=== PATIENT | male | born 2000 | race Caucasian/White ===

== ENCOUNTER 2020-09-02 17:36 | Emergency (ER) | payer MEDICAID ==
[~2020-09-02] VITALS: Ht 177.8 cm; Wt 85.0 kg
[~2020-09-02 17:36] MED LIST: ALBU6.7H9 INH; NO HOME MEDS; No home meds
[2020-09-02 18:28] LABS: BASOPHILS # (AUTO) 0.1 X10'3 (0-0.2); BASOPHILS % (AUTO) 0.7 % (0-1); EOSINOPHILS # (AUTO) 0.1 X10'3 (0-0.9); EOSINOPHILS % (AUTO) 0.7 % (0-6); HEMATOCRIT 46.7 % (42.0-52.0); HEMOGLOBIN 15.9 g/dl (14.0-17.9); LYMPHOCYTES # (AUTO) 1.6 X10'3 (1.1-4.8); LYMPHOCYTES % (AUTO) 20.9 % (21-51); MEAN CORPUSCULAR HEMOGLOBIN 31.3 PG (27.0-31.0); MEAN CORPUSCULAR VOLUME 92.1 FL (78-98); MEAN PLATELET VOLUME 7.4 FL (7.4-10.4); MONOCYTES # (AUTO) 0.5 X10'3 (0-0.9); MONOCYTES % (AUTO) 7.2 % (2-12); NEUTROPHILS # (AUTO) 5.3 X10'3 (1.8-7.7); NEUTROPHILS % (AUTO) 70.5 % (42-75); PLATELET COUNT 275 X10'3 (140-440); RED BLOOD COUNT 5.07 X10'6 (4.70-6.10); RED CELL DISTRIBUTION WIDTH 12.9 % (11.5-14.5); WHITE BLOOD COUNT 7.5 X10'3 (4.5-11.0)
[2020-09-02 18:33] LABS: CLARITY,URINE SLIGHTLY CLOUDY (Clear); COLOR,URINE YELLOW (Yellow); GLUCOSE, URINE NEGATIVE (Neg); KETONES,URINE TRACE mg/dl (Neg); LEUKOCYTE ESTERASE ,URINE NEGATIVE (Neg); NITRITES, URINE NEGATIVE (Neg); OCCULT BLOOD,URINE NEGATIVE (Neg); PROTEIN,URINE NEGATIVE (Neg)
[2020-09-02 18:39] LABS: UA COLLECTION TYPE CLN CATCH MIDSTREAM
[2020-09-02 18:39] LABS: ALANINE AMINOTRANSFERASE 36 U/L (12-78); ALBUMIN 4.2 G/DL (3.4-5.0); ALBUMIN/GLOBULIN RATIO 1.1 (1.1-1.5); ALKALINE PHOSPHATASE 74 IU/L (20-180); ANION GAP 7 (8-16); ASPARTATE AMINO TRANSFERASE 12 U/L (10-37); BILIRUBIN,TOTAL 0.5 MG/DL (0.1-1.0); BLOOD UREA NITROGEN 9 MG/DL (7-18); CALCIUM 8.7 MG/DL (8.5-10.1); CHLORIDE 105 MMOL/L (99-107); CREATININE 1.13 MG/DL (0.60-1.10); GLUCOSE 89 MG/DL (70-104); POTASSIUM 3.8 MMOL/L (3.5-5.1); SODIUM 143 MMOL/L (135-145); TOTAL CARBON DIOXIDE 30.7 MMOL/L (24-32); TOTAL PROTEIN 7.9 G/DL (6.4-8.2); eGFR 84 ML/MIN
[2020-09-02 18:41] LABS: BACTERIA,URINE FEW /HPF (Neg); RBC,URINE NONE SEEN /HPF (0-2); SQUAMOUS EPITHELIAL CELL,UR FEW /LPF (FEW); WBC,URINE 0-4 /HPF (0-4)
[2020-09-02 18:44] LABS: URINE AMPHETAMINE SCREEN NEGATIVE (Neg); URINE BARBITUATE SCREEN NEGATIVE (Neg); URINE BENZODIAZEPINES SCREEN NEGATIVE (Neg); URINE CANNABINOID SCREEN POSITIVE (Neg); URINE COCAINE SCREEN NEGATIVE (Neg); URINE METHADONE SCREEN NEGATIVE (Neg); URINE OPIATE SCREEN NEGATIVE (Neg); URINE PHENCYCLIDINE SCREEN NEGATIVE (Neg)
[2020-09-02 18:47] LABS: ACETAMINOPHEN 6.9 UG/ML (10-30)
[2020-09-02 18:50] LABS: ETHANOL < 0.010 GM/DL (0.0-0.010)
--- NOTE | 2020-09-02 19:14 | NUR ---
Pt resting in bed, given meal tray and warm blankets.
--- NOTE | 2020-09-02 19:58 | NUR ---
PACKET FAXED TO [facility]
--- NOTE | 2020-09-02 20:54 | NUR ---
pt mother called, Meagahn Baker [phone].
--- NOTE | 2020-09-02 21:38 | NUR ---
Pt resting, states he does not take any home medications.
--- NOTE | 2020-09-03 01:37 | NUR ---
Pt sleeping, RR 16
[2020-09-03 05:00] VITALS: BP 116/63
--- NOTE | 2020-09-03 07:00 | NUR ---
PT IS RESTING
--- NOTE | 2020-09-03 08:00 | NUR ---
PT IS AWAKE AND IS TAKING WITH [facility]
--- NOTE | 2020-09-03 09:00 | NUR ---
PT IS EATING BREAKFAST
--- NOTE | 2020-09-03 10:00 | NUR ---
PT IS RESTING
--- NOTE | 2020-09-03 11:00 | NUR ---
[facility] CALLED FOR REPORT
--- NOTE | 2020-09-03 12:00 | NUR ---
PT IS SLEEPING
--- NOTE | 2020-09-03 13:00 | NUR ---
COVID SENT COLLECTED
[2020-09-03] MEDS ORDERED: carbamide peroxide 15ml bottle RIGHT EAR SCH (13:10)
--- NOTE | 2020-09-03 14:38 | NUR ---
up to bathroom
--- NOTE | 2020-09-03 14:55 | NUR ---
up to bathroom
== END 2020-09-03 16:38 ==
LOC: ER 17:37
DX: R45.851 Suicidal ideations (principal); Z20.828 Contact with and (suspected) exposure to other viral communicable diseases; J45.909 Unspecified asthma, uncomplicated; F12.90 Cannabis use, unspecified, uncomplicated; Z72.89 Other problems related to lifestyle; Z79.899 Other long term (current) drug therapy
CPT/HCPCS: 36415; 80053; 80305; 80320; 80329; 81001; 84443; 85025; 87635; 99285; C9803

== ENCOUNTER 2020-09-24 11:28 | Emergency (ER) | payer MEDICAID ==
[~2020-09-24] VITALS: Ht 177.8 cm; Wt 86.4 kg
[~2020-09-24 11:28] MED LIST changes: -ALBU6.7H9 INH
[2020-09-24] MEDS ORDERED: famotidine 20mg tablet PO ONE (12:15)
[2020-09-24] MEDS ORDERED: LORazepam 1 MG tablet PO ONE (12:25)
== END 2020-09-24 12:40 | disposition home or self-care (01) ==
LOC: ER 11:28
DX: R07.89 Other chest pain (principal); R10.13 Epigastric pain; R11.10 Vomiting, unspecified; J45.909 Unspecified asthma, uncomplicated; F12.90 Cannabis use, unspecified, uncomplicated; Z72.89 Other problems related to lifestyle
CPT/HCPCS: 93005; 99283

== ENCOUNTER 2021-06-25 14:51 | Inpatient (IN) | payer MEDICAID ==
[~2021-06-25] VITALS: Ht 170.2 cm; Wt 88.1 kg
--- NOTE | 2021-06-25 15:10 | NUR ---
Patient tells RN he wants to get his life right for his family. Patient states he is hearing voices and describes them as sometimes being command hallucinations. Patient has poor insight AEB, patient tells RN that he has a break now and then and then he will take medication. RN advised patient that if he continues to take medication he won't have a break.
[2021-06-25 15:15] LABS: BASOPHILS % (AUTO) 0.4 % (0-1); EOSINOPHILS # (AUTO) 0.1 X10'3 (0-0.9); EOSINOPHILS % (AUTO) 0.9 % (0-6); HEMATOCRIT 44.3 % (42.0-52.0); HEMOGLOBIN 15.4 g/dl (14.0-17.9); LYMPHOCYTES # (AUTO) 1.6 X10'3 (1.1-4.8); LYMPHOCYTES % (AUTO) 12.2 % (21-51); MEAN CORPUSCULAR HEMOGLOBIN 31.9 PG (27.0-31.0); MEAN CORPUSCULAR HGB CONC 34.7 g/dL (33.0-36.5); MEAN CORPUSCULAR VOLUME 91.9 FL (78-98); MEAN PLATELET VOLUME 7.2 FL (7.4-10.4); MONOCYTES # (AUTO) 0.8 X10'3 (0-0.9); MONOCYTES % (AUTO) 6.5 % (2-12); NEUTROPHILS # (AUTO) 10.3 X10'3 (1.8-7.7); PLATELET COUNT 321 X10'3 (140-440); RED BLOOD COUNT 4.82 X10'6 (4.70-6.10); RED CELL DISTRIBUTION WIDTH 13.4 % (11.5-14.5); WHITE BLOOD COUNT 12.8 X10'3 (4.5-11.0)
[2021-06-25 15:30] LABS: ALANINE AMINOTRANSFERASE 25 U/L (12-78); ALBUMIN 3.8 G/DL (3.4-5.0); ALKALINE PHOSPHATASE 71 IU/L (20-180); ANION GAP 8 (8-16); ASPARTATE AMINO TRANSFERASE 20 U/L (10-37); BILIRUBIN,TOTAL 0.4 MG/DL (0.1-1.0); BLOOD UREA NITROGEN 8 MG/DL (7-18); BUN/CREATININE RATIO 8.1 (5.4-32.0); CALCIUM 8.7 MG/DL (8.5-10.1); CHLORIDE 105 MMOL/L (99-107); CREATININE 0.99 MG/DL (0.60-1.10); GLUCOSE 108 MG/DL (70-104); POTASSIUM 3.8 MMOL/L (3.5-5.1); SODIUM 141 MMOL/L (135-145); TOTAL PROTEIN 7.7 G/DL (6.4-8.2); eGFR > 90 ML/MIN
[2021-06-25 15:38] LABS: ETHANOL < 0.010 GM/DL (0.0-0.010)
[2021-06-25 15:38] LABS: CLARITY,URINE CLEAR (Clear); COLOR,URINE STRAW (Yellow); GLUCOSE, URINE NEGATIVE (Neg); KETONES,URINE NEGATIVE (Neg); NITRITES, URINE NEGATIVE (Neg); OCCULT BLOOD,URINE NEGATIVE (Neg); PROTEIN,URINE NEGATIVE (Neg); UA COLLECTION TYPE CLN CATCH MIDSTREAM
[2021-06-25 15:39] LABS: LEUKOCYTE ESTERASE ,URINE NEGATIVE (Neg)
[2021-06-25 15:43] LABS: URINE AMPHETAMINE SCREEN NEGATIVE (Neg); URINE BARBITUATE SCREEN NEGATIVE (Neg); URINE BENZODIAZEPINES SCREEN NEGATIVE (Neg); URINE CANNABINOID SCREEN POSITIVE (Neg); URINE COCAINE SCREEN NEGATIVE (Neg); URINE METHADONE SCREEN NEGATIVE (Neg); URINE OPIATE SCREEN NEGATIVE (Neg); URINE PHENCYCLIDINE SCREEN NEGATIVE (Neg)
[2021-06-25] MEDS ORDERED: haloperidol 5mg tablet PO ONE (15:45)
[2021-06-25] MEDS ORDERED: diphenhydrAMINE 25mg capsule PO ONE (15:45)
[2021-06-25] MEDS ORDERED: LORazepam 1 MG tablet PO ONE (15:45)
--- NOTE | 2021-06-25 15:55 | NUR ---
RN gave patient oral Haldol, Ativan and Benadryl. Patient is elevated, disorganized and non-stop talking. RN encouraged patient to lay in bed and allow medication to work. Patient was up and walking and talking until he got the phone and RN advised patient to stay in his room to talk. Continue to monitor.
--- NOTE | 2021-06-25 16:14 | NUR ---
PACKET FAXED TO [facility]
--- NOTE | 2021-06-25 19:00 | NUR ---
One to one with the patient who was resting on his bed. He is calmer after receiving medications. He stated that he is not taking any psychiatric medications at home but instead uses THC for medication but added that he has not been able to afford it recently. "You don't have to take the pills if you smoke weed" He denies that he is having auditory or visual hallucinations "currently" He was asked if he felt suicidal he replied, "not right now" He has been accepted to [facility] for an admission [facility].
[2021-06-25] MEDS ORDERED: loperamide 2mg capsule PO PRN (21:20)
[2021-06-25] MEDS ORDERED: mag hydrox/Alum hydrox/simeth 30ml oral suspension PO PRN (21:20)
[2021-06-25] MEDS ORDERED: acetaminophen 325mg tablet PO PRN ×2 (21:20)
[2021-06-25] MEDS ORDERED: magnesium hydroxide 30ml (MOM) UD suspension PO PRN (21:20)
[2021-06-25 22:00] VITALS: BP 121/79
--- NOTE | 2021-06-25 22:12 | NUR ---
Admission note: Pt transferred to [facility] from ER overflow at 2110. Pt on 5150 for DTS , client states he is having command hallucinations telling him to hurt himself. States he has been hitting himself in the head with fists and objects. He states he is worried he will in the streets without interventions. Pt denied SI at this time. Pt calm and cooperative with admission process, showered, and belongings inventoried. Pt is currently homeless.
[2021-06-26 08:00] VITALS: BP 122/61
[2021-06-26 08:12] LABS: CHOL/HDL RATIO 2.3 (0.00-4.99); CHOLESTEROL 126 MG/DL (0-200); HDL CHOLESTEROL 55 MG/DL (35-60); HEMOGLOBIN A1C 5.4 % (4.5-6.2); LDL CHOLESTEROL 62 MG/DL (50-100); TRIGLYCERIDES 86 MG/DL (20-135)
[2021-06-26] MEDS: LORazepam 1 MG tablet PO PRN (13:40)
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
--- NOTE | 2021-06-26 18:30 | NUR ---
Group Art Tx continued: Patient attempted to engage in the group art therapy session, however, lost interest and left early on. Patient did not interact w/ his peers or this therapist. *Please refer to the [facility] Case Notes for entire overview. Lucía Morales MA, HR RECRUITER #[id number] [facility], Art Therapist Addendum: 06/26/21 at 1833 by Lucía Morales SS Amended: Links added.
[2021-06-26 19:00] VITALS: BP 145/90
[2021-06-26] MEDS: traZODone 50mg tablet PO PRN (20:44)
--- NOTE | 2021-06-27 01:39 | NUR ---
Nursing Progress Note: abilio Legal hold: 5150 Client on involuntary status for DTS Report received from nurse Shin Goldstein with use of SBAR Why are they here: Pt was BIB EMS to [facility] ED on 06/25/21 on a 5150 from [facility] for DTS. Per reports, pt was having command auditory hallucinations to harm himself and others and had been hitting himself in the head with his fists and objects. Assessment What has happened this shift: Received pt up walking the hallways, pt calm and cooperative. Pt denies MH symptoms however he states he usually always has some anxiety and rated it 4/10 this evening. He denies AH however he states he always hears someone talking to him, usually his family members but he feels the maggie is always watching out for him. Pt wanted to listen to some music, headphones provided. Pt had HS snacks and requested trazadone before bedtime. S/I, H/I: Pt denies A/VH: Pt denies Sleep: ADL's: Independent Group attendance: Yes Were meds taken: No scheduled meds today. Any med S/E: None noted or reported. Mental Status Exam Appearance: Young man with short brown hair, acne, and eye glasses with thick lenses dressed in blue jeans with designed holes in them and a t-shirt. Eye contact: Good Behavior: Pleasant, cooperative, friendly, socializes with staff and peers. Speech: Clear, audible, hyperverbal. Mood: Mildly elevated with some lability Affect: Bright, friendly. Thought process: Racing thoughts. Thought Content: He wants to do good things Cognition: A/O X 4 Insight: Fair Judgment: Fair Interventions PRN's used: Therapeutic interventions:1:1 assessment, establishment of rapport, therapeutic conversation, active listening, encouragement to attend groups, coping skills education, behavior monitoring and intervention as needed; distraction, redirection, limit setting, positive reinforcement, and Q15 minute safety checks. Restraints/seclusion/emergency medication: None Justification of Continued Inpatient Treatment: Pt is in need of crisis interruption and medication management and monitoring in a safe and therapeutic environment until stable.
[2021-06-27 07:58] VITALS: BP 138/66
--- NOTE | 2021-06-27 11:16 | NUR ---
[facility] REFERRAL Completed and faxed CR referral, Stefano was agreeable to the referral. ROBBIN Foss
--- NOTE | 2021-06-27 12:08 | NUR ---
Met with Emerson to complete psychosocial and activity assessment. Stefano is a 20 y/o male who was placed on 5150 for danger to self. He was brought in to [facility] at [facility] by his mother for a crisis evaluation. He reported suicidal ideation and had been hitting him self in the head with his fists and objects. He reported he needed to get help in order to stop harming himself. He reported command auditory hallucinations telling him to kill himself. He has a history of impulsive suicide attempts via overdose. He told proposal writer he overdosed on 9 Seroquel (100 mg tabs) and 2 [place] about a month ago and just "slept it off". Stefano reported he recently used meth and uses marijuana and alcohol daily. At one point he stated he needs to go to rehab, however, can't go because, "I have to smoke weed". This is his 3rd hospitalization as an adult. He was previously hospitalized twice at [facility]. He did go to [facility] upon discharge from his last hospitalization. He was agreeable to a [facility] referral. Stefano denied any current SI or HI during today's interview. He denied any current hallucinations either. He is open to engaging in adult services at [facility] upon discharge. MSE: A/O: oriented x's 4 Appearance: 20 y/o male, thick coke bottle glasses, wearing torn jeans and t-shirt Behavior: combing hair repetitively throughout assessment Speech: rapid Mood: elevated Affect:labile Thought Process: linear Thought Content: goal directed Plan: Architectural Coating Finisher will assist with discharge planning and refer to [facility] ROBBIN Foss Addendum: 06/27/21 at 1211 by Cristal ECHEVARRIA Amended: Links added.
[2021-06-27] MEDS: LORazepam 1 MG tablet PO PRN (13:16)
[2021-06-27] MEDS ORDERED: diphenhydrAMINE 25mg capsule PO ONE (16:25)
[2021-06-27] MEDS ORDERED: LORazepam 1 MG tablet PO ONE (16:25)
[2021-06-27] MEDS ORDERED: haloperidol 5mg tablet PO ONE (16:25)
--- NOTE | 2021-06-27 17:30 | NUR ---
Legal hold: 5150 Client on involuntary status for DTS Report received from Ry Mccann with use of SBAR Why are they here: Pt was BIB EMS to [facility] ED on 06/25/21 on a 5150 from [facility] for DTS. Per reports, pt was having command auditory hallucinations to harm himself and others and had been hitting himself in the head with his fists and objects. Assessment What has happened this shift: Pt. received walking in the dennis. Pt. provided active listening and positive encouragement during 1:1 assessment. Pt. denies SI. HI, but acknowledges SI a few weeks. Pt. report I was hurting myself with drugs, thats why I came here. Pt presents with racing thoughts AEB moving through topics rapidly in addition with grandiose statements Im the big man Im a man like no other. Pt. has plans to DC to the [facility] and reports benefiting from prior placement a year ago. Pt. attended all meals in the dining room is friendly and engages cohorts in conversation and can often be observed walking around the unit with headphones or on the phone. Pt. c/o anxiety and requested Ativan; PRN provided with effectiveness. Later pt. made statements he was going to attempt to elope, and was getting severely agitated and verbally aggressive with provider, security was called. Pt. continued yelling and cry, I m getting out of this cage there gonna have to taze me. Supervisor Sunglasses unable to redirect pt, unable to de-escalate aggression; PRN Ativan, Benadryl and Haldol offered PO route and pt. accepted. Pt. was able to be redirected after medic technician. And returned to his room to talk to family on the phone. Pt. stopped to talk to technical report writer and apologized for recent scene he presented as calm and with good insight and stated wants to get back on track heading to sobriety. S/I, H/I: Denies A/VH: Denies Sleep: Pt slept 8 hours last night per noc shift report. ADL's: Independent Group attendance: Yes Were meds taken: Yes Any med S/E: None noted or reported. Mental Status Exam Appearance: Eye contact: Good Behavior: Pleasant, friendly Speech: Clear, hyperverbal. Mood: labile, upbeat Affect: Bright, friendly. Thought process: Racing thoughts. Thought Content: Cognition: A/O X 4 Insight: Fair Judgment: Fair Interventions PRN's used: Ativan, Benadryl, Haldol Therapeutic interventions:1:1 assessment, establishment of rapport, therapeutic conversation, active listening, encouragement to attend groups, coping skills education, behavior monitoring and intervention as needed; distraction, redirection, limit setting, positive reinforcement, and Q15 minute safety checks. Restraints/seclusion/emergency medication: None Justification of Continued Inpatient Treatment: Pt is in need of crisis interruption and medication management and monitoring in a safe and therapeutic environment until stable.
--- NOTE | 2021-06-28 02:07 | NUR ---
Legal hold: 5150 Stefano Client on involuntary status for DTS Report received from Jessica CRANE with use of SBAR Why are they here: Pt was BIB EMS to [facility] ED on 06/25/21 on a 5150 from [facility] for DTS. Per reports, pt was having command auditory hallucinations to harm himself and others and had been hitting himself in the head with his fists and objects. Assessment What has happened this shift: Pt asleep at change of shift. Pt had been given Ativan, Haldol and Benadryl on day shift. Pt resting comfortably and appears to be sleeping. No s/s distress, no scheduled HS medications. Will continue to monitor. S/I, H/I: Denies A/VH: Denies Sleep: ADL's: Independent Group attendance: Yes Were meds taken: Yes Any med S/E: None noted or reported. Mental Status Exam Appearance: Young man with short brown hair, acne, and thick eye glasses, dressed in blue jeans and t-shirt Eye contact: fair Behavior: Sleeping Speech: Clear, hyperverbal. Mood: labile, upbeat Affect: Bright, friendly. Thought process: could not assess Thought Content: Cognition: A/O X 4 Insight: Fair Judgment: Fair Interventions PRN's used: Therapeutic interventions:1:1 assessment, establishment of rapport, therapeutic conversation, active listening, encouragement to attend groups, coping skills education, behavior monitoring and intervention as needed; distraction, redirection, limit setting, positive reinforcement, and Q15 minute safety checks. Restraints/seclusion/emergency medication: None Justification of Continued Inpatient Treatment: Pt is in need of crisis interruption and medication management and monitoring in a safe and therapeutic environment until stable.
[2021-06-28 07:32] VITALS: BP 141/76
[2021-06-28] MEDS: LORazepam 1 MG tablet PO PRN ×2 (11:15→12:16)
[2021-06-28] MEDS ORDERED: diphenhydrAMINE 25mg capsule PO ONE (12:25)
[2021-06-28] MEDS ORDERED: LORazepam 1 MG tablet PO ONE (12:25)
[2021-06-28] MEDS ORDERED: haloperidol 5mg tablet PO ONE (12:25)
--- NOTE | 2021-06-28 17:21 | NUR ---
Nursing Progress Note: abilio Legal hold: 5250 Client on involuntary status for DTS Report received from ROSA MARIA Delcid with use of SBAR Why are they here: Pt was BIB EMS to [facility] ED on 06/25/21 on a 5150 from [facility] for DTS. Per reports, pt was having command auditory hallucinations to harm himself and others and had been hitting himself in the head with his fists and objects. Assessment What has happened this shift: RN received pt. asleep in bed at start of shift. Pt. awoke for breakfast and took all medications. 1:1 done at bedside, pt. states, Im a protector, I need to be out of here so I can protect my family But I understand that my family is scared of me because I threatened my little brother. Pt. became agitated in the afternoon demanding to leave, stating that there would be problems if he wasnt discharged today and that he was going to Just run out of here. Pt. began to curse loudly. Security was called and pt. informed that he cannot make threats. Pt. states, I just want to go home and smoke weed. Pt. became tearful and states, I cant be cooped up in here! RN received order for Haldol 10mg, Ativan 2mg, and Benadryl 50mg po x1. Pt. placed on 5250 today. S/I, H/I: denies A/VH: denies Sleep: Pt. slept 10.5 hrs on NOC shift and napped intermittently throughout the day. ADL's: Independent Group attendance: NA Were meds taken: No scheduled meds today. Any med S/E: Pt. c/o of sedation Mental Status Exam Appearance: Disheveled but clean wearing casual attire. Eye contact: WNL Behavior: Agitated, making threats, tearful. Speech: Clear, loud, pressured, hyperverbal. Mood: Anxious and agitated. Affect: Congruent with mood. Thought process: Tangential. Thought Content: Discharge. Cognition: A/O X 4 Insight: Fair Judgment: Fair Interventions PRN's used: Haldol 10mg, Ativan 2mg, Benadryl 50mg po x1. Therapeutic interventions:1:1 assessment, establishment of rapport, therapeutic conversation, active listening, encouragement to attend groups, coping skills education, behavior monitoring and intervention as needed; distraction, redirection, limit setting, positive reinforcement, and Q15 minute safety checks. Restraints/seclusion/emergency medication: None Justification of Continued Inpatient Treatment: Pt is in need of crisis interruption and medication management and monitoring in a safe and therapeutic environment until stable.
[2021-06-28] MEDS: divalproex sodium 500mg tablet.DR PO SCH (17:57)
--- NOTE | 2021-06-29 00:02 | NUR ---
Nursing Progress Note Legal hold: 5250 for danger to self and others. Report received from Robinson CRANE Why are they here: Pt was BIB EMS to [facility] ED on 06/25/21 on a 5150 from [facility] for DTS. Per reports, pt was having command auditory hallucinations to harm himself and others and had been hitting himself in the head with his fists and objects. Assessment What has happened this shift: The patient was up at the nursing station at the change of shift and was very focused on his 14 day hold. He was cooperative with one to one assessment. He stated he was upset that he was being held because he was the "protector of people and they need me" At one point he did become tearful. He has had no acting out behaviors that have required redirection and he did go to bed early in the shift. When asked he did admit to feeling anxious and further explained, "I think every one is watching me" He denied that he was having A/V hallucinations at the time of the evening assessment. He does admit that his moods have been labile. He denies thoughts to harm himself or others this evening. S/I, H/I: Denied A/VH: Denied but admitted to paranoia Sleep: Patient was asleep by 1930 ADL's: independent Group attendance: no groups this shift Were meds taken: no medications scheduled at Mental Status Exam Eye contact: Intermittent Behavior: See above note Speech: moderate rate and volume Mood: labile and anxious Affect: mild lability Thought process: disorganized Thought Content: grandiose and fixated on 14 day hold Cognition: alert Insight: poor Judgment: poor Justification of Continued Inpatient Treatment: Medication stabilization continues for unstable moods, paranoia.
[2021-06-29] MEDS: divalproex sodium 500mg tablet.DR PO SCH ×2 (07:31→17:28)
[2021-06-29 08:30] VITALS: BP 134/91
--- NOTE | 2021-06-29 11:56 | NUR ---
Initial: Pt admitted w/ hallucinations and SI per EMR. Pt currently on Regular diet eating mostly 100% of meals. LBM 06/28. No nutrition intervention implemented at this time, will continue to monitor. Recs: 1. Continue Regular diet as tolerated 2. Bowel care per rx 3. Weekly wts Addendum: 06/29/21 at [address] Amended: Links added.
[2021-06-29] MEDS: NICOTINE POLACRILEX 2 MG LOZENGE BC PRN ×2 (13:22→18:07)
[2021-06-29] MEDS: LORazepam 1 MG tablet PO PRN (15:43)
--- NOTE | 2021-06-29 17:03 | NUR ---
Legal hold: 5250 Client on involuntary status for DTS Report received from Bhavin CRANE with use of SBAR Why are they here: Pt was BIB EMS to [facility] ED on 06/25/21 on a 5150 from [facility] for DTS. Per reports, pt was having command auditory hallucinations to harm himself and others and had been hitting himself in the head with his fists and objects. Assessment What has happened this shift: Pt. received walking in the dennis. He approached narrative writer very upbeat stating good morning with a smile. Pt. accepted his morning medication and stated Im in such a good mood and was very apologetic for past behaviors. Resource Conservationist provided active listening and positive encouragement during 1:1 assessment. Pt. denies all SI, HI but acknowledges Hx of AH which led me to admit myself here. Pt. has plans to discharge to [facility]. Pt ate all his meals in the dining room and interacts socially with cohorts. Pt. has approached narrative writer numerous times and presents as intrusive and with racing thoughts AEB hyperverbal topics changing rapidly. Resource Conservationist discussed PRN available if he was feeling anxious; he denied any need. He has been observed pacing at times and looking for an activity to occupy himself however remains engaged minimally. Pt. has N.O for nicotine Lozenge PRN this shift. Pt. continues to be intrusive throughout the shift, but was easily redirected. Pt. participated in the group outing to the patio. Pt. approached narrative writer presenting with anxious and c/o anxiety after a phone call with family. Pt. later approached narrative writer c/o Rt. ear pain; PRN Tylenol given. S/I, H/I: Denies A/VH: Denies Sleep: Pt slept 9.75 hours last night per Noc shift report. ADL's: Independent Group attendance: Yes Were meds taken: Yes Any med S/E: None noted or reported. Mental Status Exam Appearance: Young male with glasses wearing glasses and street clothes. Eye contact: Good Behavior: Pleasant, friendly Speech: Clear, hyperverbal. Mood: Upbeat Affect: Congruent with mood. Thought process: Racing thoughts. Thought Content: going to [facility] Cognition: A/O X 4 Insight: Fair Judgment: Fair Interventions PRN's used: Nicotine lozenge, Ativan, Tylenol Therapeutic interventions:1:1 assessment, establishment of rapport, therapeutic conversation, active listening, encouragement to attend groups, coping skills education, behavior monitoring and intervention as needed; distraction, redirection, limit setting, positive reinforcement, and Q15 minute safety checks. Restraints/seclusion/emergency medication: None Justification of Continued Inpatient Treatment: Pt is in need of crisis interruption and medication management and monitoring in a safe and therapeutic environment until stable.
[2021-06-29 20:15] VITALS: BP 145/102
[2021-06-29] MEDS: traZODone 50mg tablet PO PRN (20:15)
--- NOTE | 2021-06-30 01:18 | NUR ---
Nursing Progress Note: Legal hold: 5150 Client on involuntary status for DTS Report received from ROSA MARIA Stephens with use of SBAR Why are they here: Pt was BIB EMS to [facility] ED on 06/25/21 on a 5150 from [facility] for DTS. Per reports, pt was having command auditory hallucinations to harm himself and others and had been hitting himself in the head with his fists and objects. Assessment What has happened this shift: Patient in the dennis at shift change. He reports that he's doing fine, "just trying to burn some energy." Patient asks for Trazodone as soon as possible, so he can sleep. He has no scheduled meds, but was given Trazodone before heading to bed. S/I, H/I: Denies A/VH: Denies Sleep: See sleep assessment ADL's: Independent Group attendance: Yes Were meds taken: Yes Any med S/E: None reported or observed. Mental Status Exam Appearance: Young man with short brown hair, acne, and thick eye glasses, dressed in blue jeans and t-shirt Eye contact: fair Behavior: Pacing, intrusive, friendly Speech: Clear, hyperverbal. Mood: Good Affect: Bright, friendly. Thought process: could not assess Thought Content: Cognition: A/O X 4 Insight: Fair Judgment: Fair Interventions PRN's used: Trazodone Therapeutic interventions:1:1 assessment, establishment of rapport, therapeutic conversation, active listening, encouragement to attend groups, coping skills education, behavior monitoring and intervention as needed; distraction, redirection, limit setting, positive reinforcement, and Q15 minute safety checks. Restraints/seclusion/emergency medication: None Justification of Continued Inpatient Treatment: Pt is in need of crisis interruption and medication management and monitoring in a safe and therapeutic environment until stable.
[2021-06-30] MEDS: divalproex sodium 500mg tablet.DR PO SCH (08:20)
[2021-06-30] MEDS: LORazepam 1 MG tablet PO PRN (10:20)
[2021-06-30] MEDS: NICOTINE POLACRILEX 2 MG LOZENGE BC PRN ×2 (10:52→13:13)
--- NOTE | 2021-06-30 11:52 | NUR ---
Nursing Progress Note Legal hold: 5250 Client on involuntary status for DTS Report received from Melinda CRANE with use of SBAR Why are they here: Pt was BIB EMS to [facility] ED on 06/25/21 on a 5150 from [facility] for DTS. Per reports, pt was having command auditory hallucinations to harm himself and others and had been hitting himself in the head with his fists and objects. Assessment What has happened this shift: Pt. was active on the unit today. Pt was in a good mood and was wanting to socialize with staff and peers. Pt reports that he feels like his medication is working, stating that he hasnt felt this normal in 2 years. Pt appears to have pretty good insight into his mental illness but struggles with substance abuse. This rn discussed at length the risks of combining illicit drugs with mental illness and pt seemed to be receptive. Pt believes he is ready to be dcd and is looking forward to going to the [facility] . All meds were taken without issue. S/I, H/I: Denies A/VH: Denies Sleep: Pt slept 9.75 hours last night per Noc shift report. ADL's: Independent Group attendance: Yes Were meds taken: Yes Any med S/E: None noted or reported. Mental Status Exam Appearance: Young male with glasses wearing glasses and street clothes. Eye contact: Good Behavior: Pleasant, friendly Speech: Clear, hyperverbal. Mood: Upbeat Affect: Congruent with mood. Thought process: Racing thoughts. Thought Content: going to [facility] Cognition: A/O X 4 Insight: Fair Judgment: Fair Interventions PRN's used: Nicotine lozenge, Ativan, Tylenol Therapeutic interventions:1:1 assessment, establishment of rapport, therapeutic conversation, active listening, encouragement to attend groups, coping skills education, behavior monitoring and intervention as needed; distraction, redirection, limit setting, positive reinforcement, and Q15 minute safety checks. Restraints/seclusion/emergency medication: None Justification of Continued Inpatient Treatment: Pt is in need of crisis interruption and medication management and monitoring in a safe and therapeutic environment until stable.
--- NOTE | 2021-06-30 14:02 | NUR ---
Pt. attended group today. We talked about how we all look at the world differently due to our core beliefs. These core beliefs then inform thoughts and behaviors. Each pt. identified one negative core belief and then wrote out three truths that contradict their negative beliefs to work on thinking differently. Pt. engaged in the group well today, he shared his thoughts appropriately for the most part. He was alert and oriented X 4. He struggled to figure out what negative core belief he was believing. He reported that he didn't like the acne on his face. This Network Security Consultant helped him figure out what was the negative core belief underneath this thought was. He was able to think of a more positive way of thinking about himself with prompting. His demeanor was pleasant, calm and compliant. Emani Munguia LCSW
[2021-06-30] MEDS ORDERED: DIVA500T2 PO (14:47)
[2021-06-30] MEDS ORDERED: NICO-907 BC (14:47)
[2021-06-30] MEDS ORDERED: TRAZ-251 PO (14:47)
--- NOTE | 2021-06-30 16:48 | NUR ---
DISCHARGE NOTE Pt discharged at 1545, escorted off the unit by PCT. He was given bus tickets to take the bus to a friend's house, per his request. Pt verbalized understanding of medication instructions, that prescriptions were sent to the pharmacy, follow up care instructions, and community resources. Pt's belongings inventoried and sent with patient.
== END 2021-06-30 15:45 | disposition home or self-care (01) | DRG 751 ==
LOC: ER 14:51 → ADULT MH 17:25
PROVIDERS: ADMIT Psychiatry & Neurology Psychiatry; ATTEND Psychiatry & Neurology Psychiatry
DX: F29 Unspecified psychosis not due to a substance or known physiological condition (principal); R45.851 Suicidal ideations; F39 Unspecified mood [affective] disorder; F32.A Depression, unspecified; F12.90 Cannabis use, unspecified, uncomplicated; F17.210 Nicotine dependence, cigarettes, uncomplicated; F20.9 Schizophrenia, unspecified; Z20.822 Contact with and (suspected) exposure to COVID-19; F41.9 Anxiety disorder, unspecified; Z60.2 Problems related to living alone; F90.9 Attention-deficit hyperactivity disorder, unspecified type; J45.909 Unspecified asthma, uncomplicated; Z79.899 Other long term (current) drug therapy; Z81.8 Family history of other mental and behavioral disorders; Z91.51 Personal history of suicidal behavior; Z59.00 Homelessness unspecified; Z56.0 Unemployment, unspecified; Z71.6 Tobacco abuse counseling
CPT/HCPCS: 36415; 80053; 80061; 80305; 80320; 81003; 83036; 84443; 85025; 87081; 87635; 99283; C9803; Q0163

== ENCOUNTER 2021-07-03 19:35 | Emergency (ER) | payer MEDICAID ==
[~2021-07-03] VITALS: Ht 177.8 cm; Wt 87.7 kg
[~2021-07-03 19:35] MED LIST changes: +DIVA500T2 PO; +NICO-907 BC; -No home meds; +TRAZ-251 PO
--- NOTE | 2021-07-03 22:59 | NUR ---
PT HAS DENIED ANY LABWORK D/T FEAR OF NEEDLES
[2021-07-03] MEDS ORDERED: LORazepam 1 MG tablet PO ONE (23:20)
[2021-07-03 23:29] LABS: URINE AMPHETAMINE SCREEN NEGATIVE (Neg); URINE BARBITUATE SCREEN NEGATIVE (Neg); URINE BENZODIAZEPINES SCREEN NEGATIVE (Neg); URINE CANNABINOID SCREEN POSITIVE (Neg); URINE COCAINE SCREEN NEGATIVE (Neg); URINE METHADONE SCREEN NEGATIVE (Neg); URINE OPIATE SCREEN NEGATIVE (Neg); URINE PHENCYCLIDINE SCREEN NEGATIVE (Neg)
--- NOTE | 2021-07-03 23:30 | NUR ---
PT STARTED YELLING AT STAFF, ATTEMPTING TO WANDER AROUND THE DEPARTMENT, FLAGGING STAFF DOWN, AND WALKED TO THE NURSING STATION. MD WILL PRESCRIBE MEDS
[2021-07-04] MEDS ORDERED: LORazepam 2 mg/ml vial IM ONE
[2021-07-04] MEDS ORDERED: haloperidol lactate 5mg/ml inj IM ONE
[2021-07-04] MEDS ORDERED: diphenhydrAMINE 50 mg/ml inj IM ONE
[2021-07-04] MEDS ORDERED: diphenhydrAMINE 25mg capsule PO ONE (00:15)
[2021-07-04] MEDS ORDERED: LORazepam 1 MG tablet PO ONE (00:15)
--- NOTE | 2021-07-04 00:30 | NUR ---
PT MEDICATED. SITTER WITH HIM
--- NOTE | 2021-07-04 02:00 | NUR ---
PT SLEEPING. EQUAL RISE AND FALL OF CHEST
--- NOTE | 2021-07-04 03:31 | NUR ---
PT SLEEPING COMFORTABLY. SITTER OUTSIDE ROOM
--- NOTE | 2021-07-04 05:58 | NUR ---
PT GOT UP TO USE BATHROOM. IS BACK IN BED SLEEPING. HAS ALSO AGREED TO LABWORK.
[2021-07-04 05:59] LABS: HEMOGLOBIN 13.7 g/dl (14.0-17.9)
[2021-07-04 06:01] LABS: BASOPHILS # (AUTO) 0.1 X10'3 (0-0.2); BASOPHILS % (AUTO) 0.7 % (0-1); EOSINOPHILS # (AUTO) 0.1 X10'3 (0-0.9); EOSINOPHILS % (AUTO) 1.6 % (0-6); HEMATOCRIT 39.4 % (42.0-52.0); LYMPHOCYTES # (AUTO) 2.6 X10'3 (1.1-4.8); LYMPHOCYTES % (AUTO) 29.9 % (21-51); MEAN CORPUSCULAR HEMOGLOBIN 32.4 PG (27.0-31.0); MEAN CORPUSCULAR HGB CONC 34.6 g/dL (33.0-36.5); MEAN CORPUSCULAR VOLUME 93.4 FL (78-98); MEAN PLATELET VOLUME 7.6 FL (7.4-10.4); MONOCYTES # (AUTO) 0.9 X10'3 (0-0.9); MONOCYTES % (AUTO) 9.8 % (2-12); NEUTROPHILS # (AUTO) 5.1 X10'3 (1.8-7.7); PLATELET COUNT 236 X10'3 (140-440); RED BLOOD COUNT 4.22 X10'6 (4.70-6.10); RED CELL DISTRIBUTION WIDTH 13.6 % (11.5-14.5); WHITE BLOOD COUNT 8.8 X10'3 (4.5-11.0)
[2021-07-04 06:16] LABS: ALANINE AMINOTRANSFERASE 20 U/L (12-78); ALBUMIN 3.7 G/DL (3.4-5.0); ALBUMIN/GLOBULIN RATIO 1.1 (1.1-1.5); ALKALINE PHOSPHATASE 56 IU/L (20-180); ANION GAP 4 (8-16); ASPARTATE AMINO TRANSFERASE 12 U/L (10-37); BILIRUBIN,TOTAL 1.4 MG/DL (0.1-1.0); BLOOD UREA NITROGEN 8 MG/DL (7-18); BUN/CREATININE RATIO 7.3 (5.4-32.0); CALCIUM 8.7 MG/DL (8.5-10.1); CHLORIDE 106 MMOL/L (99-107); CREATININE 1.09 MG/DL (0.60-1.10); GLUCOSE 98 MG/DL (70-104); POTASSIUM 4.5 MMOL/L (3.5-5.1); SODIUM 142 MMOL/L (135-145); TOTAL CARBON DIOXIDE 31.6 MMOL/L (24-32); eGFR 86 ML/MIN
[2021-07-04 06:24] LABS: ETHANOL < 0.010 GM/DL (0.0-0.010)
--- NOTE | 2021-07-04 09:00 | NUR ---
Received pt from [facility]. Pt hyperverbal and entitled but responded well to redirection and now is laying in bed.
[2021-07-04 09:03] VITALS: BP 121/59
--- NOTE | 2021-07-04 09:21 | NUR ---
Packet faxed to [facility]. Patient ambulated to room 22 and is currently calm and cooperative.
[2021-07-04] MEDS ORDERED: divalproex 250mg tablet, delayed-release PO SCH (10:15)
[2021-07-04] MEDS ORDERED: traZODone 50mg tablet PO PRN (10:15)
[2021-07-04] MEDS: NICOTINE POLACRILEX 2 MG LOZENGE BC PRN ×3 (10:21→14:17)
--- NOTE | 2021-07-04 10:52 | NUR ---
Pt yelling and threatening. Security called and currently standing by. Pt demanding and exhibitting attention seeking behavior.
--- NOTE | 2021-07-04 12:59 | NUR ---
Pt cooperative with assessment by [facility] and has been less threatening and demanding, but remains hyperverbal and extremely delusional with multiple grandiose thoughts and over inflated sense of importance.
== END 2021-07-04 14:30 | disposition home or self-care (01) ==
LOC: ER 19:35
DX: R45.851 Suicidal ideations (principal); Z20.822 Contact with and (suspected) exposure to COVID-19; R45.850 Homicidal ideations; J45.909 Unspecified asthma, uncomplicated; F32.9 Major depressive disorder, single episode, unspecified; F20.9 Schizophrenia, unspecified; F12.90 Cannabis use, unspecified, uncomplicated; Z72.89 Other problems related to lifestyle; Z60.2 Problems related to living alone; Z59.00 Homelessness unspecified; Z79.899 Other long term (current) drug therapy
CPT/HCPCS: 80053; 80305; 80320; 85025; 87635; 99285; C9803; Q0163

== ENCOUNTER 2021-07-09 22:24 | Emergency (ER) | payer MEDICAID ==
[~2021-07-09] VITALS: Ht 177.8 cm; Wt 85.9 kg
[2021-07-10] MEDS ORDERED: OLANZapine 5mg rapidly disint. tablet PO ONE (01:05)
[2021-07-10] MEDS ORDERED: acetaminophen 325mg tablet PO ONE (01:35)
[2021-07-10 01:41] VITALS: BP 150/66
== END 2021-07-10 01:44 | disposition home or self-care (01) ==
LOC: ER 22:25
DX: F30.9 Manic episode, unspecified (principal); M79.672 Pain in left foot; J45.909 Unspecified asthma, uncomplicated; F20.9 Schizophrenia, unspecified; F12.90 Cannabis use, unspecified, uncomplicated; Z72.89 Other problems related to lifestyle; Z59.00 Homelessness unspecified; Z79.899 Other long term (current) drug therapy
CPT/HCPCS: 99283

== ENCOUNTER 2021-07-14 10:15 | Emergency (ER) | payer MEDICAID ==
[~2021-07-14] VITALS: Ht 175.3 cm; Wt 81.8 kg
[2021-07-14 10:27] VITALS: BP 153/101
[2021-07-14] MEDS ORDERED: LORazepam 1 MG tablet PO ONE (10:45)
[2021-07-14] MEDS ORDERED: ketorolac tromethamine 15mg/ml inj. IM ONE (10:45)
--- NOTE | 2021-07-14 11:07 | NUR ---
at time of treat and discharge, pt refused toradol shot as pt does not like im medications. pt not able to receive ativan as he has no safe ride home and wanted to walk. this is not safe to give to pt without safe discharge plan. pt insisted on walking
== END 2021-07-14 11:09 | disposition home or self-care (01) ==
LOC: ER 10:16
DX: R51.9 Headache, unspecified (principal); F41.9 Anxiety disorder, unspecified; M54.89 Other dorsalgia; J45.909 Unspecified asthma, uncomplicated; F32.9 Major depressive disorder, single episode, unspecified; F20.9 Schizophrenia, unspecified; F12.90 Cannabis use, unspecified, uncomplicated; Z72.89 Other problems related to lifestyle; Z60.2 Problems related to living alone; Z59.00 Homelessness unspecified; Z79.899 Other long term (current) drug therapy; V87.7XXA Person injured in collision between other specified motor vehicles (traffic), initial encounter; Y93.89 Activity, other specified; Y92.89 Other specified places as the place of occurrence of the external cause; Y99.8 Other external cause status
CPT/HCPCS: 99281; 99283

== ENCOUNTER 2021-07-22 04:15 | Emergency (ER) | payer MEDICAID ==
[~2021-07-22] VITALS: Ht 177.8 cm; Wt 86.4 kg
[2021-07-22 04:21] VITALS: BP 131/71
[2021-07-22] MEDS ORDERED: MELA10TA2 PO (05:10)
[2021-07-22] MEDS ORDERED: ZOLP5TAB8 PO (05:10)
[2021-07-22] MEDS ORDERED: Melatonin 3mg tablet PO STA (05:12)
== END 2021-07-22 05:23 | disposition home or self-care (01) ==
LOC: ER 04:16
DX: G47.00 Insomnia, unspecified (principal); J45.909 Unspecified asthma, uncomplicated; F32.9 Major depressive disorder, single episode, unspecified; F20.9 Schizophrenia, unspecified; F12.90 Cannabis use, unspecified, uncomplicated; Z72.89 Other problems related to lifestyle; Z60.2 Problems related to living alone; Z59.00 Homelessness unspecified; Z79.899 Other long term (current) drug therapy
CPT/HCPCS: 99283

== ENCOUNTER 2021-07-30 17:51 | Emergency (ER) | payer MEDICAID ==
[~2021-07-30 17:51] MED LIST changes: +MELA10TA2 PO
[2021-07-31] MEDS ORDERED: ALBU8.5H17 IH (02:34)
== END 2021-07-30 19:07 | disposition left against medical advice (07) ==
LOC: ER 17:51
DX: R07.9 Chest pain, unspecified (principal); Z53.21 Procedure and treatment not carried out due to patient leaving prior to being seen by health care provider

== ENCOUNTER 2021-07-30 22:23 | Emergency (ER) | payer MEDICAID ==
[~2021-07-30] VITALS: Ht 177.8 cm; Wt 90.9 kg
[2021-07-30 23:00] VITALS: BP 129/64
--- NOTE | 2021-07-31 02:26 | NUR ---
Patient denies complaint. He states, "I'm just looking to chill out. I was tripping. I'm coming down from all the drugs."
[2021-07-31] MEDS ORDERED: ALBU8.5H17 IH (02:34)
== END 2021-07-31 03:18 | disposition home or self-care (01) ==
LOC: ER 22:24
DX: F43.9 Reaction to severe stress, unspecified (principal); J45.909 Unspecified asthma, uncomplicated; F32.9 Major depressive disorder, single episode, unspecified; F20.9 Schizophrenia, unspecified; Z59.00 Homelessness unspecified; Z79.899 Other long term (current) drug therapy
CPT/HCPCS: 93005; 99283

== ENCOUNTER 2021-07-31 16:11 | Emergency (ER) | payer MEDICAID ==
[~2021-07-31] VITALS: Ht 177.8 cm; Wt 86.8 kg
[~2021-07-31 16:11] MED LIST changes: +ALBU8.5H17 IH
[2021-07-31] MEDS ORDERED: LORazepam 1 MG tablet PO ONE (21:20)
[2021-07-31 21:37] LABS: CLARITY,URINE CLEAR (Clear); GLUCOSE, URINE NEGATIVE (Neg); KETONES,URINE NEGATIVE (Neg); LEUKOCYTE ESTERASE ,URINE NEGATIVE (Neg); NITRITES, URINE NEGATIVE (Neg); OCCULT BLOOD,URINE NEGATIVE (Neg); PROTEIN,URINE NEGATIVE (Neg); UROBILINOGEN,URINE 0.2 E.U/dL (0.2-1.0)
[2021-07-31 21:40] LABS: COLOR,URINE YELLOW (Yellow); UA COLLECTION TYPE CLN CATCH MIDSTREAM
[2021-07-31 21:46] LABS: BASOPHILS # (AUTO) 0.1 X10'3 (0-0.2); BASOPHILS % (AUTO) 0.7 % (0-1); EOSINOPHILS # (AUTO) 0.1 X10'3 (0-0.9); EOSINOPHILS % (AUTO) 0.9 % (0-6); HEMATOCRIT 42.5 % (42.0-52.0); HEMOGLOBIN 14.9 g/dl (14.0-17.9); LYMPHOCYTES % (AUTO) 26.6 % (21-51); MEAN CORPUSCULAR HEMOGLOBIN 32.6 PG (27.0-31.0); MEAN CORPUSCULAR HGB CONC 34.9 g/dL (33.0-36.5); MEAN CORPUSCULAR VOLUME 93.4 FL (78-98); MEAN PLATELET VOLUME 7.2 FL (7.4-10.4); MONOCYTES # (AUTO) 0.9 X10'3 (0-0.9); MONOCYTES % (AUTO) 7.7 % (2-12); NEUTROPHILS # (AUTO) 7.2 X10'3 (1.8-7.7); NEUTROPHILS % (AUTO) 64.1 % (42-75); PLATELET COUNT 262 X10'3 (140-440); RED BLOOD COUNT 4.55 X10'6 (4.70-6.10); RED CELL DISTRIBUTION WIDTH 13.5 % (11.5-14.5); WHITE BLOOD COUNT 11.3 X10'3 (4.5-11.0)
[2021-07-31 21:48] LABS: URINE AMPHETAMINE SCREEN NEGATIVE (Neg); URINE BARBITUATE SCREEN NEGATIVE (Neg); URINE BENZODIAZEPINES SCREEN NEGATIVE (Neg); URINE CANNABINOID SCREEN POSITIVE (Neg); URINE COCAINE SCREEN NEGATIVE (Neg); URINE METHADONE SCREEN NEGATIVE (Neg); URINE OPIATE SCREEN NEGATIVE (Neg); URINE PHENCYCLIDINE SCREEN NEGATIVE (Neg)
[2021-07-31 22:00] LABS: ALANINE AMINOTRANSFERASE 27 U/L (12-78); ALBUMIN 4.7 G/DL (3.4-5.0); ALBUMIN/GLOBULIN RATIO 1.3 (1.1-1.5); ALKALINE PHOSPHATASE 68 IU/L (20-180); ANION GAP 9 (8-16); ASPARTATE AMINO TRANSFERASE 14 U/L (10-37); BILIRUBIN,TOTAL 1.2 MG/DL (0.1-1.0); BLOOD UREA NITROGEN 13 MG/DL (7-18); BUN/CREATININE RATIO 11.7 (5.4-32.0); CALCIUM 9.5 MG/DL (8.5-10.1); CHLORIDE 101 MMOL/L (99-107); CREATININE 1.11 MG/DL (0.60-1.10); GLUCOSE 86 MG/DL (70-104); POTASSIUM 3.5 MMOL/L (3.5-5.1); SODIUM 138 MMOL/L (135-145); TOTAL CARBON DIOXIDE 27.9 MMOL/L (24-32); TOTAL PROTEIN 8.2 G/DL (6.4-8.2); eGFR 84 ML/MIN
[2021-07-31 22:10] LABS: ETHANOL < 0.010 GM/DL (0.0-0.010)
--- NOTE | 2021-07-31 22:30 | NUR ---
PT ROOMED TO BED 7. PT STANDING AT DOOR OF ROOM. INSTRUCTED TO HEAD BACK TO [facility]. HE THEN TOOK A CUP OF WATER AND STARTED CHUGGING WATER AT THE SINK. PT INSTRUCTED TO GO BACK TO [facility] WITH HIS CUP OF WATER. PT BECAME COMPLIANT BUT ANSWERS QUESTIONS VAGUELY. HE DENIES ANY SUICIDAL IDEATIONS AT THIS POINT. HE ALSO DENIES HAVING DONE ANYTHING TO HURT HIMSELF RECENTLY.
--- NOTE | 2021-07-31 22:36 | NUR ---
Patient's belongings collected in bag and the belongings form filled out. Packet for [facility] faxed.
--- NOTE | 2021-07-31 23:30 | NUR ---
PT WILL ATTEMPT TO SLEEP. HE IS ON [facility].
--- NOTE | 2021-08-01 00:30 | NUR ---
PT IS SLEEPING COMFORTABLY. EQUAL RISE AND FALL OF CHEST.
--- NOTE | 2021-08-01 01:30 | NUR ---
PT CONTINUES TO SLEEP COMFORTABLY. EQUAL RISE AND FALL OF CHEST
--- NOTE | 2021-08-01 02:30 | NUR ---
PT CONTINUES TO SLEEP COMFORTABLY
--- NOTE | 2021-08-01 03:30 | NUR ---
PT SHIFTED TO HIS OTHER SIDE. CONTINUES TO SLEEP. EQUAL RISE AND FALL OF CHEST.
--- NOTE | 2021-08-01 04:30 | NUR ---
PT IS SLEEPING ON RIGHT SIDE. NO COMPLAINTS AT PRESENT. EQUAL RISE AND FALL OF CHEST.
--- NOTE | 2021-08-01 05:30 | NUR ---
PT SLEEPING COMFORTABLY. EQUAL RISE AND FALL OF CHEST.
--- NOTE | 2021-08-01 06:30 | NUR ---
PT RESTING, BED LOCKED AND LOW, PT IN LNE OF SIGHT FROM NURSING STATION. PT SHOWS NO S/S OF DISTRESS.
--- NOTE | 2021-08-01 07:30 | NUR ---
PT RESTING IN BED, SUPINE POSITION. NO S/S OF ACUTE DISTRESS.
--- NOTE | 2021-08-01 08:30 | NUR ---
PT RESTING IN BED,. NO S/S OF ACUTE DISTRESS.
--- NOTE | 2021-08-01 09:27 | NUR ---
PT AWAKE AND ALERT. PROVIDED PT W/ WATER. PT ASKING FOR NICOTINE LOZENGE. WILL ASK MD FOR MEDICATION. PT HAS NO COMPLAINTS AT THIS TIME. DENIES PAIN/ DISCOMFORT.
--- NOTE | 2021-08-01 09:45 | NUR ---
ASKED PT ABOUT SI/HI THOUGHTS AND PLANS PT STATED "I HAVE THOSE THOUGHTS SOMETIMES BUT DOESNT EVERYONE". PT STATES YAMILETH BEEN SHOT AT AND I GET INTO A LOT OF FIGHTS." WHEN ASKED IF PT FEELS SAFE HE SAID HE JUST NEEDS A PLACE TO STAY UNTIL HE CAN GET INTO REHAB.
--- NOTE | 2021-08-01 10:10 | NUR ---
Received pt from main ER back to [facility]. Pt appears calm and cooperative. Smiling with bright affect and says, "I'm going to rehab ([facility]) in three days" and then says, "I'm so bored"
--- NOTE | 2021-08-01 10:13 | NUR ---
PT TRANSFERED TO BED 21 IN [facility]. PT AMBULATED W/O ASSISTANCE. PT COOPERATIVE. NO COMPLAINTS. SBAR PROVIDED TO ROSA MARIA DELUCA
--- NOTE | 2021-08-01 10:49 | NUR ---
Per Main ED packet sent to [facility]
[2021-08-01] MEDS: NICOTINE POLACRILEX 2 MG LOZENGE BC PRN ×2 (11:12→14:45)
--- NOTE | 2021-08-01 12:02 | NUR ---
Pt becoming rude demanding nicotine lozenge; cussing and demeaning the nurses and his care and shifting responsibility on others and not seeing his own behaviors and choices as being a causative agent for his situations.
--- NOTE | 2021-08-01 12:59 | NUR ---
Pt generally quietly laying in bed, with occasional rude and entitled outburst.
[2021-08-01] MEDS ORDERED: LORazepam 1 MG tablet PO PRN (14:40)
[2021-08-01] MEDS: olanzapine 10mg tablet PO SCH ×2 (14:45→20:00)
--- NOTE | 2021-08-01 15:00 | NUR ---
Pt requested coffee. Pt polite and quiet without signs of agitation.
--- NOTE | 2021-08-01 17:00 | NUR ---
Pt was given zyprexa and now has been sleeping for awhile.
--- NOTE | 2021-08-01 19:30 | NUR ---
PT SITTING UP ON GURNEY IN [facility] BED 13, WAS MOVED FROM OVERFLOW TO MAIN ER. PT CALM, NO C/O
--- NOTE | 2021-08-01 20:30 | NUR ---
PT ATE DINNER, RESTING ON GURNEY AGAIN, NO CHANGE
--- NOTE | 2021-08-01 21:30 | NUR ---
PT IS ASLEEP, NO CHANGE
--- NOTE | 2021-08-01 22:30 | NUR ---
PT REMAINS ASLEEP ON [place]
--- NOTE | 2021-08-01 23:49 | NUR ---
PT SLEEPING, NO CHANGE
--- NOTE | 2021-08-02 06:10 | NUR ---
Nurse to nurse from [facility] in [place] for patient. Pt covid swabbed for transfer.
[2021-08-02] MEDS: NICOTINE POLACRILEX 2 MG LOZENGE BC PRN ×2 (06:47→16:39)
--- NOTE | 2021-08-02 07:10 | NUR ---
Patient is up and loud. RN gave patient a nicotine lozenge and an Ativan. Continue to monitor.
--- NOTE | 2021-08-02 08:10 | NUR ---
Patient eating breakfast. No distress observed. Continue to monitor.
[2021-08-02] MEDS: olanzapine 10mg tablet PO SCH ×3 (08:38→19:36)
--- NOTE | 2021-08-02 10:05 | NUR ---
Patient sleeping supine. No distress observed. Continue to monitor.
[2021-08-02] MEDS ORDERED: ALB0.5UD IH (10:33)
[2021-08-02] MEDS ORDERED: DIVA-76 PO (10:33)
[2021-08-02] MEDS ORDERED: albuterol 2.5 MG/3 ML nebule NEB PRN (10:50)
--- NOTE | 2021-08-02 12:39 | NUR ---
Patient sleeping on his right side. No distress observed. Continue to monitor.
--- NOTE | 2021-08-02 13:12 | NUR ---
Patient eating lunch. No distress observed. Continue to monitor.
--- NOTE | 2021-08-02 15:10 | NUR ---
Patient got up to help the patient next to him. RN explained that we would help him. Patient verbalized understanding. Patient laid back down. No distress observed. Continue to monitor.
[2021-08-02] MEDS: divalproex sodium 500mg tablet.DR PO SCH ×2 (19:07→19:36)
[2021-08-02] MEDS ORDERED: diphenhydrAMINE 50 mg/ml inj IM ONE (19:15)
[2021-08-02] MEDS ORDERED: LORazepam 2 mg/ml vial IM ONE (19:15)
[2021-08-02] MEDS ORDERED: haloperidol lactate 5mg/ml inj IM ONE (19:15)
--- NOTE | 2021-08-02 20:48 | NUR ---
At approx 1900 patient becomes more agitated, pounding his fist on bedside table, hitting himself in the head, stating, "This place fucking sucks! You keep doping me up!" Refuses routine Zyprexa and MD sheng notified who gives new orders for IM Benadryl/ Haldol/ Ativan, Security at bedside for injection which patient tries to refuse and continues yelling while getting the medication, security stands by as patient continues to yell, he then begins to calm down and is now resting quietly in bed, no s/sx acute distress
--- NOTE | 2021-08-03 01:12 | NUR ---
Continues to rest quietly in bed.
--- NOTE | 2021-08-03 03:58 | NUR ---
continues to rest quietly in bed
[2021-08-03] MEDS: NICOTINE POLACRILEX 2 MG LOZENGE BC PRN ×2 (05:43→10:30)
[2021-08-03 05:59] VITALS: BP 118/68
--- NOTE | 2021-08-03 06:30 | NUR ---
Pt is standing at the foot of the bed repeating, "I am bored and tired of being here." Pt redirected to his bed. Pt refused and continued to stand at the foot of the bed while this nurse cared for other pts and finished report.
[2021-08-03] MEDS: divalproex sodium 500mg tablet.DR PO SCH (07:25)
[2021-08-03] MEDS: olanzapine 10mg tablet PO SCH (07:26)
--- NOTE | 2021-08-03 08:30 | NUR ---
Pt continues to be difficult to redirect. He is talking loudly "I am tired of being here' 'I signed myself in here so should be able to walk out when I want." Pt reminded he is on a 5150 waiting for placement. Pt sat on his bed quietly.
[2021-08-03] MEDS ORDERED: LORazepam 2 mg/ml vial IM ONE (09:15)
[2021-08-03] MEDS ORDERED: haloperidol lactate 5mg/ml inj IM ONE (09:15)
[2021-08-03] MEDS ORDERED: diphenhydrAMINE 50 mg/ml inj IM ONE (09:15)
--- NOTE | 2021-08-03 09:15 | NUR ---
Pt started yelling, "I want to leave here." I told you that,: Pt continued to yell until other patients joined in yelling, "yeah I want to leave too, my 5150 is up." Called security and received orders for medications, IM.
[2021-08-03] MEDS ORDERED: haloperidol lactate 5mg/ml inj ONE (09:23)
[2021-08-03] MEDS ORDERED: diphenhydrAMINE 50 mg/ml inj ONE (09:23)
[2021-08-03] MEDS ORDERED: LORazepam 2 mg/ml vial ONE (09:24)
--- NOTE | 2021-08-03 09:45 | NUR ---
Pt given IM injections with security stand by. Pt cooperative until he left to go to [facility] [place].
== END 2021-08-03 10:40 ==
LOC: ER 16:12
DX: F79 Unspecified intellectual disabilities (principal); Z20.822 Contact with and (suspected) exposure to COVID-19; F19.10 Other psychoactive substance abuse, uncomplicated; F20.9 Schizophrenia, unspecified; F32.9 Major depressive disorder, single episode, unspecified; J45.909 Unspecified asthma, uncomplicated; F12.90 Cannabis use, unspecified, uncomplicated; Z72.89 Other problems related to lifestyle; Z59.00 Homelessness unspecified; Z60.2 Problems related to living alone; Z79.899 Other long term (current) drug therapy
CPT/HCPCS: 36415; 80053; 80305; 80320; 81003; 84443; 85025; 87635; 96372; 99285; C9803; J1200; J1630; J2060

== ENCOUNTER 2021-08-05 21:24 | Emergency (ER) | payer MEDICAID ==
[~2021-08-05] VITALS: Ht 174 cm; Wt 86.0 kg
[~2021-08-05 21:24] MED LIST changes: +ALB0.5UD IH; -ALBU8.5H17 IH; +DIVA-76 PO; -DIVA500T2 PO; -MELA10TA2 PO; -NICO-907 BC; -NO HOME MEDS; -TRAZ-251 PO
[2021-08-05 22:08] VITALS: BP 147/81
[2021-08-06] MEDS ORDERED: OLAN5TAB5 PO (00:25)
[2021-08-29] MEDS ORDERED: HYDR-3965 PO (14:42)
--- NOTE | 2021-09-22 17:45 | NUR ---
PT WAS A PT IN [facility] ER ON 08/05/21, AT TIME OF DC PT DID NOT RECEIVE HIS HELD MEDICATION THAT WAS FOUND IN THE [employer]ER [employer]S CUPBOARD. PT WAS CALLED AND THE PHONE # ON RECORD WAS NOT THE PT'S CONTACT # AND THE [facility] PHONE # WAS NOT IN SERVICE. MEDICATION WAS TAKEN TO PHARMACY.
== END 2021-08-06 04:36 | disposition home or self-care (01) ==
LOC: ER 21:25
DX: F20.9 Schizophrenia, unspecified (principal); J45.909 Unspecified asthma, uncomplicated; F32.9 Major depressive disorder, single episode, unspecified; Z59.00 Homelessness unspecified
CPT/HCPCS: 93005; 99285

== ENCOUNTER 2021-08-13 03:46 | Emergency (ER) | payer MEDICAID ==
[~2021-08-13] VITALS: Ht 175.3 cm; Wt 86.4 kg
[~2021-08-13 03:46] MED LIST changes: +OLAN5TAB5 PO
[2021-08-13] MEDS ORDERED: ibuprofen tablet 400 MG TABLET PO ONE (04:10)
[2021-08-13 04:14] VITALS: BP 122/60
== END 2021-08-13 04:16 | disposition home or self-care (01) ==
LOC: ER 03:46
DX: F32.9 Major depressive disorder, single episode, unspecified (principal); M54.89 Other dorsalgia; J45.909 Unspecified asthma, uncomplicated; F20.9 Schizophrenia, unspecified; F12.90 Cannabis use, unspecified, uncomplicated; Z72.89 Other problems related to lifestyle; Z60.2 Problems related to living alone; Z59.00 Homelessness unspecified; Z79.899 Other long term (current) drug therapy
CPT/HCPCS: 99282

== ENCOUNTER 2021-08-15 05:25 | Emergency (ER) | payer MEDICAID ==
[~2021-08-15] VITALS: Ht 177.8 cm; Wt 72.5 kg
[2021-08-15 05:51] VITALS: BP 121/59
== END 2021-08-15 08:23 | disposition home or self-care (01) ==
LOC: ER 05:26
DX: Z02.89 Encounter for other administrative examinations (principal); H93.13 Tinnitus, bilateral; J45.909 Unspecified asthma, uncomplicated; F32.9 Major depressive disorder, single episode, unspecified; F20.9 Schizophrenia, unspecified; F12.90 Cannabis use, unspecified, uncomplicated; Z72.89 Other problems related to lifestyle; Z60.2 Problems related to living alone; Z59.00 Homelessness unspecified; Z79.899 Other long term (current) drug therapy
CPT/HCPCS: 99281

== ENCOUNTER 2021-08-17 10:26 | Emergency (ER) | payer MEDICAID ==
[2021-08-29] MEDS ORDERED: HYDR-3965 PO (14:42)
== END 2021-08-17 11:27 | disposition left against medical advice (07) ==
LOC: ER 10:26
DX: J02.9 Acute pharyngitis, unspecified (principal); Z53.21 Procedure and treatment not carried out due to patient leaving prior to being seen by health care provider

== ENCOUNTER 2021-08-27 03:53 | Emergency (ER) | payer MEDICAID ==
[~2021-08-27] VITALS: Ht 177.8 cm; Wt 84.0 kg
[2021-08-27] MEDS ORDERED: AZIT-83 PO (04:30)
[2021-08-27 05:11] VITALS: BP 130/80
[2021-08-29] MEDS ORDERED: HYDR-3965 PO (14:42)
== END 2021-08-27 05:14 | disposition home or self-care (01) ==
LOC: ER 03:54
DX: R05.9 Cough, unspecified (principal); J45.909 Unspecified asthma, uncomplicated; F32.9 Major depressive disorder, single episode, unspecified; F20.9 Schizophrenia, unspecified; F17.200 Nicotine dependence, unspecified, uncomplicated; F12.90 Cannabis use, unspecified, uncomplicated; Z59.00 Homelessness unspecified; Z72.89 Other problems related to lifestyle; Z60.2 Problems related to living alone; Z79.2 Long term (current) use of antibiotics; Z79.899 Other long term (current) drug therapy
CPT/HCPCS: 99283

== ENCOUNTER 2021-09-03 06:07 | Emergency (ER) | payer MEDICAID ==
[~2021-09-03] VITALS: Ht 175.3 cm; Wt 84.0 kg
[~2021-09-03 06:07] MED LIST changes: +AZIT-83 PO
[2021-09-03 06:40] LABS: BASOPHILS % (AUTO) 0.5 % (0-1); EOSINOPHILS % (AUTO) 0.2 % (0-6); HEMATOCRIT 41.5 % (42.0-52.0); HEMOGLOBIN 14.1 g/dl (14.0-17.9); LYMPHOCYTES # (AUTO) 1.1 X10'3 (1.1-4.8); LYMPHOCYTES % (AUTO) 23.6 % (21-51); MEAN CORPUSCULAR HEMOGLOBIN 31.7 PG (27.0-31.0); MEAN CORPUSCULAR HGB CONC 33.9 g/dL (33.0-36.5); MEAN CORPUSCULAR VOLUME 93.7 FL (78-98); MEAN PLATELET VOLUME 7.7 FL (7.4-10.4); MONOCYTES # (AUTO) 0.6 X10'3 (0-0.9); MONOCYTES % (AUTO) 13.4 % (2-12); NEUTROPHILS # (AUTO) 2.8 X10'3 (1.8-7.7); NEUTROPHILS % (AUTO) 62.3 % (42-75); PLATELET COUNT 201 X10'3 (140-440); RED BLOOD COUNT 4.43 X10'6 (4.70-6.10); RED CELL DISTRIBUTION WIDTH 12.9 % (11.5-14.5); WHITE BLOOD COUNT 4.6 X10'3 (4.5-11.0)
--- NOTE | 2021-09-03 07:05 | NUR ---
CALLED POISON CONTROL AND SPOKE WITH ASHLEY. INFORMED ASHLEY EKG NORMAL, QT 351, QTC 435. VS 96.1, 86, 13, 176/90, DEPAKOTE LEVEL NOT BACK. RECOMMENDATION: MONITOR FOR 6 HOURS OF INGESTION OR UNTIL RETURN TO BASELINE. IF DEPOKATE ELEVATED, GET AMMMONIA LEVEL.
--- NOTE | 2021-09-03 07:13 | NUR ---
BACK FROM CT SCAN. VSS.
[2021-09-03 07:20] LABS: ALANINE AMINOTRANSFERASE 19 U/L (12-78); ALBUMIN 3.7 G/DL (3.4-5.0); ALBUMIN/GLOBULIN RATIO 1.2 (1.1-1.5); ALKALINE PHOSPHATASE 62 IU/L (20-180); ANION GAP 13 (8-16); ASPARTATE AMINO TRANSFERASE 29 U/L (10-37); BILIRUBIN,TOTAL 0.3 MG/DL (0.1-1.0); BLOOD UREA NITROGEN 11 MG/DL (7-18); BUN/CREATININE RATIO 12.2 (5.4-32.0); CALCIUM 8.7 MG/DL (8.5-10.1); CHLORIDE 108 MMOL/L (99-107); GLUCOSE 108 MG/DL (70-104); POTASSIUM 3.6 MMOL/L (3.5-5.1); SODIUM 146 MMOL/L (135-145); TOTAL CARBON DIOXIDE 25.3 MMOL/L (24-32); TOTAL PROTEIN 6.8 G/DL (6.4-8.2); eGFR > 90 ML/MIN
[2021-09-03 07:27] LABS: ACETAMINOPHEN < 2.0 UG/ML (10-30); ETHANOL < 0.010 GM/DL (0.0-0.010); VALPROATE < 3.0 UG/ML (50-100)
--- NOTE | 2021-09-03 08:44 | NUR ---
STR CATH 270CC CLEAR YELLOW URINE
[2021-09-03 08:56] LABS: CLARITY,URINE CLEAR (Clear); COLOR,URINE YELLOW (Yellow); GLUCOSE, URINE NEGATIVE (Neg); KETONES,URINE NEGATIVE (Neg); LEUKOCYTE ESTERASE ,URINE NEGATIVE (Neg); NITRITES, URINE NEGATIVE (Neg); OCCULT BLOOD,URINE NEGATIVE (Neg); PH,URINE 6.5 (4.8-8.0); PROTEIN,URINE NEGATIVE (Neg); UROBILINOGEN,URINE 0.2 E.U/dL (0.2-1.0)
[2021-09-03 08:57] LABS: UA COLLECTION TYPE STRAIGHT CATH
[2021-09-03 09:01] LABS: URINE AMPHETAMINE SCREEN NEGATIVE (Neg); URINE BARBITUATE SCREEN NEGATIVE (Neg); URINE BENZODIAZEPINES SCREEN NEGATIVE (Neg); URINE CANNABINOID SCREEN POSITIVE (Neg); URINE COCAINE SCREEN NEGATIVE (Neg); URINE METHADONE SCREEN NEGATIVE (Neg); URINE OPIATE SCREEN NEGATIVE (Neg); URINE PHENCYCLIDINE SCREEN NEGATIVE (Neg)
--- NOTE | 2021-09-03 16:21 | NUR ---
breaking primary nurse ,pt resting in rgt lateral position.
--- NOTE | 2021-09-03 19:28 | NUR ---
pt in bed sleeping
--- NOTE | 2021-09-03 20:26 | NUR ---
pt in bed awake gave pt a sandwitch
[2021-09-04] MEDS ORDERED: ALBU8HFA IH (04:42)
[2021-09-04] MEDS ORDERED: QUET200T31 PO (04:42)
[2021-09-04] MEDS ORDERED: albuterol 2.5 MG/3 ML nebule NEB PRN (05:00)
--- NOTE | 2021-09-04 05:57 | NUR ---
pt covid swab resulted as positive. pt moved to room 13. sbar report given to amanda mahmood.
[2021-09-04] MEDS: divalproex sodium 500mg tablet.DR PO SCH ×2 (08:35→22:00)
[2021-09-04] MEDS: OLANZapine 5mg rapidly disint. tablet PO SCH ×2 (08:35→22:00)
[2021-09-04] MEDS: quetiapine 100mg tablet PO SCH (22:00)
--- NOTE | 2021-09-05 07:52 | NUR ---
Spoke to pt, a&o x4 awoke when name was stated. Pt was oriented to where he was and what caused his visit. When asked if pt had suicidal thoughts pt stated "no" vitals WNL, pt denies c/o pain or discomfort.
[2021-09-05] MEDS: divalproex sodium 500mg tablet.DR PO SCH (08:41)
[2021-09-05] MEDS: OLANZapine 5mg rapidly disint. tablet PO SCH (08:41)
--- NOTE | 2021-09-05 09:38 | NUR ---
Pt noted to be resting in bed no s/s of distress at this time
--- NOTE | 2021-09-05 11:05 | NUR ---
Pt was witnessed walking back from the restroom with his mask under his chin. He was reminded that because he is covid positive and he must remain in his room and to wear his mask correctly.
--- NOTE | 2021-09-05 12:00 | NUR ---
Pt is resting.
[2021-09-06] MEDS: quetiapine 100mg tablet PO SCH ×2 (02:13→21:58)
[2021-09-06] MEDS: divalproex sodium 500mg tablet.DR PO SCH ×3 (02:13→21:58)
[2021-09-06] MEDS: OLANZapine 5mg rapidly disint. tablet PO SCH ×3 (02:13→21:58)
--- NOTE | 2021-09-06 06:30 | NUR ---
first contact with pt, found resting in bed. awaiting mental health placement. no needs, no distress at this time.
--- NOTE | 2021-09-06 15:33 | NUR ---
Patient awake and asking if we found his glasses. I had Will, follow up manager check for belongings.
--- NOTE | 2021-09-06 15:42 | NUR ---
No glasses found, I advised patient he was found in the bushes at [facility] unreponsive.
--- NOTE | 2021-09-06 16:06 | NUR ---
Patient's mother Meaghan rodriguez and he gave me permission to talk with her. Mom is concerned because he continues to OD on meds and wants to . He also lost his glasses and is blind without them. I explained that [facility] is in the process of evaluating the patient, so I have no info on if they will continue his MH hold. As for his glasses, they are not here and he didn't come in with them. She said she cld [facility] and they are going to look around for his glasses.
--- NOTE | 2021-09-06 16:48 | NUR ---
Patient requesting nicotine patch.
--- NOTE | 2021-09-06 16:53 | NUR ---
Per Dr. King give Nicotine 7mg patch daily.
[2021-09-06] MEDS: nicotine 7mg patch - 24hr TD SCH (16:56)
--- NOTE | 2021-09-07 08:56 | NUR ---
has meal tray and on phone will Meaghan Baker, mother.
[2021-09-07] MEDS: OLANZapine 5mg rapidly disint. tablet PO SCH ×2 (09:48→20:00)
[2021-09-07] MEDS: divalproex sodium 500mg tablet.DR PO SCH ×2 (09:48→20:00)
[2021-09-07] MEDS: nicotine 7mg patch - 24hr TD SCH (09:48)
--- NOTE | 2021-09-07 12:15 | NUR ---
sitting up in bed eating lunch
[2021-09-07] MEDS: quetiapine 100mg tablet PO SCH (21:07)
[2021-09-07] MEDS ORDERED: NICOTINE POLACRILEX 4 MG LOZENGE BC PRN (21:25)
[2021-09-07] MEDS: NICOTINE POLACRILEX 2 MG LOZENGE BC PRN (22:17)
--- NOTE | 2021-09-08 07:39 | NUR ---
REPORT RECEIVED, CARE ASSUMED. PT IS SLEEPING COMFORTABLY, NO S/S OF DISTRESS NOTED
[2021-09-08] MEDS: divalproex sodium 500mg tablet.DR PO SCH ×2 (08:00→21:00)
[2021-09-08] MEDS: OLANZapine 5mg rapidly disint. tablet PO SCH ×2 (08:00→21:01)
[2021-09-08] MEDS: nicotine 7mg patch - 24hr TD SCH (08:00)
[2021-09-08] MEDS: NICOTINE POLACRILEX 2 MG LOZENGE BC PRN (10:19)
[2021-09-08] MEDS ORDERED: quetiapine 100mg tablet PO STA (11:13)
--- NOTE | 2021-09-08 18:57 | NUR ---
ASSUMED CARE OF PT. PT SLEEPING COMFORTABLY. SLEEPING EASILY AWAKENS WHEN I CALL HIS NAME.
--- NOTE | 2021-09-08 20:00 | NUR ---
PT SLEEPING COMFORTABLY. EQUAL RISE AND FALL OF CHEST.
[2021-09-08] MEDS: quetiapine 100mg tablet PO SCH (21:00)
--- NOTE | 2021-09-08 21:03 | NUR ---
pt has taken his meds. engaged in light conversation. will now try to sleep again
--- NOTE | 2021-09-08 21:34 | NUR ---
PT IS SITTING UP EATING A SNACK
--- NOTE | 2021-09-08 22:07 | NUR ---
PT SLEEPING COMFORTABLY EQUAL RISE AND FALL OF CHEST.
--- NOTE | 2021-09-08 23:00 | NUR ---
PT SLEEPING ON HIS SIDE. EQUAL RISE AND FALL OF CHEST
--- NOTE | 2021-09-08 23:50 | NUR ---
PT CONTINUES TO SLEEP COMFORTABLY. EQUAL RISE AND FALL OF CHEST.
--- NOTE | 2021-09-09 01:00 | NUR ---
PT SHIFTED TO OTHER SIDE AND CONTINUES TO COMFORTABLY SLEEP.
--- NOTE | 2021-09-09 02:03 | NUR ---
PT COMFORTABLY SLEEPING. EQUAL RISE AND FALL OF CHEST.
--- NOTE | 2021-09-09 03:08 | NUR ---
PT CONTINUES TO SLEEP COMFORTABLY. EQUAL RISE AND FALL OF CHEST.
--- NOTE | 2021-09-09 04:19 | NUR ---
PT CONTINUES TO SLEEP COMFORTABLY. EQUAL RISE AND FALL OF CHEST.
--- NOTE | 2021-09-09 05:34 | NUR ---
PT SHIFTED SIDES AND CONTINUES TO SLEEP. EQUAL RISE AND FALL OF CHEST.
--- NOTE | 2021-09-09 08:00 | NUR ---
pt sleeping in rgt lateral position ,no distress noted ,rr wnl .will cont to monitor.
[2021-09-09] MEDS: divalproex sodium 500mg tablet.DR PO SCH ×2 (08:25→21:18)
[2021-09-09] MEDS: OLANZapine 5mg rapidly disint. tablet PO SCH ×2 (08:25→21:18)
[2021-09-09] MEDS: nicotine 7mg patch - 24hr TD SCH (08:26)
--- NOTE | 2021-09-09 08:33 | NUR ---
DID ASSESSMENT AT THIS TIME,PT STATED HE IS DOING GREAT,VITALS SATBLE ,SEAN NAY CONCERN .WILL CONT TO MONITOR,PT HAS FINISHED HIS BREAKFAST ,URINATED 1100 ML OF URINE.
--- NOTE | 2021-09-09 10:42 | NUR ---
PT WALKING IN THE ROOM ,NO DISTRESS NOTED .WILL CONT TO MONITOR.
[2021-09-09] MEDS ORDERED: dicyclomine 10mg/ml 2ml ampule IM ONE (11:10)
[2021-09-09] MEDS ORDERED: LORazepam 2 mg/ml vial IM ONE (11:10)
[2021-09-09] MEDS ORDERED: diphenhydrAMINE 50 mg/ml inj IM ONE (11:20)
--- NOTE | 2021-09-09 11:33 | NUR ---
PT BEINGING TO BECOME DIFFICULTY, LEAVING THE ROOM, DEMANDING TO LEAVE. DR HERNANDEZ MEDICATION ORDERS RECIEVED AND GIVEN
--- NOTE | 2021-09-09 12:11 | NUR ---
PT IS RESTING IN BED QUIETLY NO DISTRESS NOTED .CONT TO MONITOR.
--- NOTE | 2021-09-09 13:34 | NUR ---
pt sleeping in rgt lateral position,will cont to monitor.rr wnl.
--- NOTE | 2021-09-09 18:57 | NUR ---
PT IS AWAKE AND SITTING ON HIS BED. PT GIVEN A MEAL TRAY. PT IS COMPLIANT.
--- NOTE | 2021-09-09 20:00 | NUR ---
PT IS AWAKE AND TALKING TO STAFF THAT IS WALKING IN THE [facility]
--- NOTE | 2021-09-09 21:00 | NUR ---
PT IS SLEEPING ON HIS SIDE. EQUAL RISE AND FALL OF CHEST.
[2021-09-09] MEDS: quetiapine 100mg tablet PO SCH (21:18)
--- NOTE | 2021-09-09 22:00 | NUR ---
PT IS SHIFTED ON HIS SIDE AND CONTINUES TO SLEEP COMFORTABLY. NO OTHER COMPLAINTS AT PRESENT.
[2021-09-09 22:57] VITALS: BP 110/68
--- NOTE | 2021-09-09 23:00 | NUR ---
PT IS SLEEPING. EQUAL RISE AND FALL OF CHEST
--- NOTE | 2021-09-10 | NUR ---
PT SLEEPING ON HIS SIDE.
--- NOTE | 2021-09-10 01:00 | NUR ---
PT SLEEPING ON LATERAL SIDE. EQUAL RISE AND FALL OF CHEST.
--- NOTE | 2021-09-10 02:37 | NUR ---
PT SLEEPING COMFORTABLY. EQUAL RISE AND FALL OF CHEST.
--- NOTE | 2021-09-10 03:57 | NUR ---
PT SHIFTED ONTO HIS BACK. CONTINUES TO SLEEP. EQUAL RISE AND FALL OF CHEST.
--- NOTE | 2021-09-10 04:29 | NUR ---
PT CONTINUES TO SLEEP COMFORTABLY. EQUAL RISE AND FALL OF CHEST.
--- NOTE | 2021-09-10 05:51 | NUR ---
pt sleeping comfortably. equal rise and fall of chest.
--- NOTE | 2021-09-10 08:50 | NUR ---
pt getting anxious and wants to leave, tired of being in room. spoke with nettie, working on a discharge plan for pt. informed pt, pt much calmer. will keep pt posted on poc.
[2021-09-10] MEDS: nicotine 7mg patch - 24hr TD SCH (09:02)
[2021-09-10] MEDS: OLANZapine 5mg rapidly disint. tablet PO SCH (09:03)
[2021-09-10] MEDS: divalproex sodium 500mg tablet.DR PO SCH (09:03)
--- NOTE | 2021-09-10 10:59 | NUR ---
shara called, referred her to mother sun.
== END 2021-09-10 12:19 ==
LOC: ER 06:07
DX: T43.592A Poisoning by other antipsychotics and neuroleptics, intentional self-harm, initial encounter (principal); Z20.822 Contact with and (suspected) exposure to COVID-19; F32.9 Major depressive disorder, single episode, unspecified; F20.9 Schizophrenia, unspecified; J45.909 Unspecified asthma, uncomplicated; F12.90 Cannabis use, unspecified, uncomplicated; Z79.2 Long term (current) use of antibiotics; Z59.00 Homelessness unspecified; Y92.89 Other specified places as the place of occurrence of the external cause
CPT/HCPCS: 36415; 70450; 71045; 80053; 80164; 80305; 80320; 80329; 81003; 82140; 84484; 85025; 87635; 93005; 96372; 99285; C9803

== ENCOUNTER 2021-09-16 02:28 | Emergency (ER) | payer MEDICAID ==
[~2021-09-16] VITALS: Ht 177.8 cm; Wt 86.0 kg
[~2021-09-16 02:28] MED LIST changes: -ALB0.5UD IH; +ALBU8HFA IH; -AZIT-83 PO; +QUET200T31 PO
[2021-09-16 03:07] VITALS: BP 114/61
[2021-09-16] MEDS ORDERED: AMOX-101 PO (04:15)
[2021-09-16] MEDS ORDERED: amoxicillin 250mg capsule PO ONE (04:15)
== END 2021-09-16 04:24 | disposition home or self-care (01) ==
LOC: ER 02:28
DX: H66.91 Otitis media, unspecified, right ear (principal); J45.909 Unspecified asthma, uncomplicated; F10.10 Alcohol abuse, uncomplicated; F12.90 Cannabis use, unspecified, uncomplicated; Z59.00 Homelessness unspecified
CPT/HCPCS: 99283

== ENCOUNTER 2021-09-18 04:01 | Emergency (ER) | payer MEDICAID ==
[~2021-09-18] VITALS: Ht 180.3 cm; Wt 77.3 kg
[~2021-09-18 04:01] MED LIST changes: +AMOX-101 PO
[2021-09-18 04:11] VITALS: BP 128/94
== END 2021-09-18 08:43 | disposition left against medical advice (07) ==
LOC: ER 04:03
DX: H93.19 Tinnitus, unspecified ear (principal); Z53.21 Procedure and treatment not carried out due to patient leaving prior to being seen by health care provider

== ENCOUNTER 2021-09-18 22:23 | Emergency (ER) | payer MEDICAID ==
[~2021-09-18] VITALS: Ht 180.3 cm; Wt 71.1 kg
[~2021-09-18 22:23] MED LIST changes: +ALB0.5UD IH; +AZIT-83 PO; +HYDR-3965 PO
--- NOTE | 2021-09-19 00:26 | NUR ---
PATIENT LOCKED SELF IN BATHROOM AND WAS SLEEPING WITH A BLANKET ON THE FLOOR. SECURITY UNLOCKED BATHROOM DOOR. THE DISCHARGE INSTRUCTIONS WERE VERBALIZED TO THE PATIENT. HE REFUSED TO VACATE THE PREMESIS. SECURITY ARRESTED THE PATIENT ON TRESSPASS CHARGES.
[2021-09-19 00:30] VITALS: BP 148/98
== END 2021-09-19 00:34 | disposition home or self-care (01) ==
LOC: ER 22:24
DX: Z00.00 Encounter for general adult medical examination without abnormal findings (principal); J45.909 Unspecified asthma, uncomplicated; F12.90 Cannabis use, unspecified, uncomplicated; Z59.00 Homelessness unspecified; Z88.0 Allergy status to penicillin
CPT/HCPCS: 99281

== ENCOUNTER 2021-09-19 10:51 | Emergency (ER) | payer MEDICAID ==
[~2021-09-19] VITALS: Ht 177.8 cm; Wt 68.0 kg
--- NOTE | 2021-09-19 12:56 | NUR ---
patient still in rap and remains calm.
--- NOTE | 2021-09-19 13:22 | NUR ---
Patient states he fell and hit head; given ice pack. Patient has bag of dried beans he is throwing one at a time into patient area on RAP deck; refuses to stop. Patient states, "I just want a bed." Patient advised that throwing beans will not get him a bed. Patient states, "just give me a bed."
[2021-09-19 13:27] LABS: BASOPHILS # (AUTO) 0.1 X10'3 (0-0.2); BASOPHILS % (AUTO) 0.4 % (0-1); EOSINOPHILS % (AUTO) 0.3 % (0-6); HEMATOCRIT 41.3 % (42.0-52.0); HEMOGLOBIN 14.3 g/dl (14.0-17.9); LYMPHOCYTES # (AUTO) 1.8 X10'3 (1.1-4.8); MEAN CORPUSCULAR HEMOGLOBIN 31.9 PG (27.0-31.0); MEAN CORPUSCULAR HGB CONC 34.6 g/dL (33.0-36.5); MEAN CORPUSCULAR VOLUME 92.1 FL (78-98); MEAN PLATELET VOLUME 7.3 FL (7.4-10.4); MONOCYTES # (AUTO) 1.1 X10'3 (0-0.9); MONOCYTES % (AUTO) 8.8 % (2-12); NEUTROPHILS # (AUTO) 9.2 X10'3 (1.8-7.7); NEUTROPHILS % (AUTO) 75.5 % (42-75); PLATELET COUNT 340 X10'3 (140-440); RED BLOOD COUNT 4.48 X10'6 (4.70-6.10); RED CELL DISTRIBUTION WIDTH 12.7 % (11.5-14.5); WHITE BLOOD COUNT 12.1 X10'3 (4.5-11.0)
[2021-09-19 13:40] LABS: ALANINE AMINOTRANSFERASE 24 U/L (12-78); ALBUMIN 4.3 G/DL (3.4-5.0); ALBUMIN/GLOBULIN RATIO 1.1 (1.1-1.5); ALKALINE PHOSPHATASE 77 IU/L (20-180); ANION GAP 12 (8-16); ASPARTATE AMINO TRANSFERASE 29 U/L (10-37); BILIRUBIN,TOTAL 1.1 MG/DL (0.1-1.0); BLOOD UREA NITROGEN 19 MG/DL (7-18); BUN/CREATININE RATIO 22.1 (5.4-32.0); CHLORIDE 101 MMOL/L (99-107); CREATININE 0.86 MG/DL (0.60-1.10); GLUCOSE 88 MG/DL (70-104); POTASSIUM 3.9 MMOL/L (3.5-5.1); SODIUM 137 MMOL/L (135-145); TOTAL CARBON DIOXIDE 24.3 MMOL/L (24-32); TOTAL PROTEIN 8.2 G/DL (6.4-8.2); eGFR > 90 ML/MIN
--- NOTE | 2021-09-19 13:45 | NUR ---
PATIENT WILL NOT STAY STILL,PACING IN RAP AREA,WENT TO THE ED LOBBY EVEN AFTER DISCOURAGING HIM MULTIPLE TIMES SINCE HE IS COVID +, PATIENT REFUSED TO BE REDIRECTED.SECURITY CALLED.
[2021-09-19 13:47] VITALS: BP 127/79
[2021-09-19 13:48] LABS: ETHANOL < 0.010 GM/DL (0.0-0.010)
== END 2021-09-19 15:22 ==
LOC: ER 10:57
DX: S09.90XA Unspecified injury of head, initial encounter (principal); R45.4 Irritability and anger; J45.909 Unspecified asthma, uncomplicated; F32.9 Major depressive disorder, single episode, unspecified; F20.9 Schizophrenia, unspecified; F12.90 Cannabis use, unspecified, uncomplicated; Z59.00 Homelessness unspecified; Z88.0 Allergy status to penicillin; W22.8XXA Striking against or struck by other objects, initial encounter; Y93.89 Activity, other specified; Y92.89 Other specified places as the place of occurrence of the external cause; Y99.9 Unspecified external cause status
CPT/HCPCS: 36415; 80053; 80320; 84443; 85025; 99283

== ENCOUNTER 2021-09-24 22:55 | Emergency (ER) | payer MEDICAID ==
[~2021-09-24] VITALS: Ht 175.3 cm; Wt 82.3 kg
[~2021-09-24 22:55] MED LIST changes: -ALB0.5UD IH; -AZIT-83 PO; -HYDR-3965 PO
[2021-09-24 23:09] VITALS: BP 138/78
[2021-09-25 01:56] LABS: BASOPHILS # (AUTO) 0.1 X10'3 (0-0.2); BASOPHILS % (AUTO) 0.6 % (0-1); EOSINOPHILS # (AUTO) 0.1 X10'3 (0-0.9); EOSINOPHILS % (AUTO) 1.3 % (0-6); HEMOGLOBIN 13.7 g/dl (14.0-17.9); LYMPHOCYTES # (AUTO) 2.2 X10'3 (1.1-4.8); LYMPHOCYTES % (AUTO) 23.5 % (21-51); MEAN CORPUSCULAR HEMOGLOBIN 32.7 PG (27.0-31.0); MEAN CORPUSCULAR VOLUME 93.4 FL (78-98); MEAN PLATELET VOLUME 7.1 FL (7.4-10.4); MONOCYTES # (AUTO) 0.7 X10'3 (0-0.9); MONOCYTES % (AUTO) 7.1 % (2-12); NEUTROPHILS # (AUTO) 6.2 X10'3 (1.8-7.7); NEUTROPHILS % (AUTO) 67.5 % (42-75); PLATELET COUNT 305 X10'3 (140-440); RED BLOOD COUNT 4.18 X10'6 (4.70-6.10); RED CELL DISTRIBUTION WIDTH 12.9 % (11.5-14.5); WHITE BLOOD COUNT 9.2 X10'3 (4.5-11.0)
[2021-09-25 02:09] LABS: ALANINE AMINOTRANSFERASE 24 U/L (12-78); ALBUMIN 3.7 G/DL (3.4-5.0); ALBUMIN/GLOBULIN RATIO 1.1 (1.1-1.5); ALKALINE PHOSPHATASE 58 IU/L (20-180); ANION GAP 11 (8-16); ASPARTATE AMINO TRANSFERASE 11 U/L (10-37); BILIRUBIN,TOTAL 0.1 MG/DL (0.1-1.0); BLOOD UREA NITROGEN 18 MG/DL (7-18); BUN/CREATININE RATIO 23.7 (5.4-32.0); CALCIUM 8.6 MG/DL (8.5-10.1); CHLORIDE 104 MMOL/L (99-107); CREATININE 0.76 MG/DL (0.60-1.10); GLUCOSE 97 MG/DL (70-104); POTASSIUM 4.2 MMOL/L (3.5-5.1); SODIUM 141 MMOL/L (135-145); TOTAL CARBON DIOXIDE 26.5 MMOL/L (24-32); eGFR > 90 ML/MIN
[2021-09-25 02:13] LABS: ETHANOL < 0.010 GM/DL (0.0-0.010)
[2021-09-25] MEDS ORDERED: LORazepam 1 MG tablet PO ONE (04:55)
[2021-09-25 04:59] LABS: URINE AMPHETAMINE SCREEN NEGATIVE (Neg); URINE BARBITUATE SCREEN NEGATIVE (Neg); URINE BENZODIAZEPINES SCREEN NEGATIVE (Neg); URINE CANNABINOID SCREEN POSITIVE (Neg); URINE COCAINE SCREEN NEGATIVE (Neg); URINE METHADONE SCREEN NEGATIVE (Neg); URINE OPIATE SCREEN NEGATIVE (Neg); URINE PHENCYCLIDINE SCREEN NEGATIVE (Neg)
[2021-09-25] MEDS ORDERED: nicotine 21mg patch - 24 hr TD ONE ×2 (05:15→11:05)
--- NOTE | 2021-09-25 09:10 | NUR ---
PATIENT ESCORTED OVER FROM MAIN ER NOTED AMBULATING WTIH A STEADY GAIT. HE IS A&O X4 WITH NO S/S OF DISTRESS. LUNGS SOUNDS CTA. PATIENT ENDORSED LBM YESTERDAY. PATIENT ENDORSED TO THIS MEDICAL I D SALES THAT HE "NEEDS HELP GETTING BACK ON HIS MEDICATION". HE IS NOTED RESTING IN BED AT THIS TIME WITH NO COMPLAINTS. WILL CONTINUE TO MONITOR.
--- NOTE | 2021-09-25 09:35 | NUR ---
PATIENT IS BEING EVALUATED BY [facility] AT THIS TIME
[2021-09-25] MEDS ORDERED: QUET200T31 PO (10:44)
--- NOTE | 2021-09-25 11:00 | NUR ---
PATIENT NOTED PERSEVERATING ON "GOING OUTSIDE TO SMOKE CIGARETTES". MD NOTIFIED OF PATIENT'S NICOTINE CONSUMPTION WITH A NEW ORDER FOR RTN DAILY NICOTINE PATCHES. HE IS OBSERVED STANDING OUTSIDE OF HIS ROOM SOCIALIZING WITH ANOTHER PEER. NO CHANGES NOTED AT THIS TIME.
[2021-09-25] MEDS ORDERED: LORazepam 1 MG tablet PO PRN (11:05)
[2021-09-25] MEDS ORDERED: albuterol 2.5 MG/3 ML nebule NEB PRN (11:50)
[2021-09-25] MEDS ORDERED: quetiapine 100mg tablet PO SCH (21:00)
[2021-09-26] MEDS ORDERED: nicotine 21mg patch - 24 hr TD SCH (08:00)
== END 2021-09-25 12:14 | disposition home or self-care (01) ==
LOC: ER 22:56
DX: R45.851 Suicidal ideations (principal); F43.20 Adjustment disorder, unspecified; F12.10 Cannabis abuse, uncomplicated; Z20.822 Contact with and (suspected) exposure to COVID-19; H92.01 Otalgia, right ear; J45.909 Unspecified asthma, uncomplicated; F20.9 Schizophrenia, unspecified; F17.200 Nicotine dependence, unspecified, uncomplicated; F10.10 Alcohol abuse, uncomplicated; Z59.00 Homelessness unspecified; Z60.2 Problems related to living alone; Z88.0 Allergy status to penicillin; Z79.899 Other long term (current) drug therapy; Y90.9 Presence of alcohol in blood, level not specified
CPT/HCPCS: 36415; 80053; 80305; 80320; 85025; 87635; 99285; C9803

== ENCOUNTER 2021-09-27 21:21 | Emergency (ER) | payer MEDICAID ==
[~2021-09-27] VITALS: Ht 177.8 cm; Wt 77.0 kg
[~2021-09-27 21:21] MED LIST changes: -AMOX-101 PO; -DIVA-76 PO; -OLAN5TAB5 PO
[2021-09-27 21:27] VITALS: BP 127/76
== END 2021-09-28 02:12 | disposition left against medical advice (07) ==
LOC: ER 21:22
DX: S09.90XA Unspecified injury of head, initial encounter (principal); Z53.21 Procedure and treatment not carried out due to patient leaving prior to being seen by health care provider; X58.XXXA Exposure to other specified factors, initial encounter; Y93.9 Activity, unspecified; Y92.9 Unspecified place or not applicable; Y99.9 Unspecified external cause status

== ENCOUNTER 2021-09-29 23:55 | Emergency (ER) | payer MEDICAID ==
[~2021-09-29] VITALS: Ht 170.2 cm; Wt 80.0 kg
[2021-09-30 00:02] VITALS: BP 123/78
[2021-09-30] MEDS ORDERED: acetaminophen 325mg tablet PO ONE (01:30)
[2021-10-01] MEDS ORDERED: DIVA-52 PO (13:24)
[2021-10-01] MEDS ORDERED: OLAN10TA73 PO (13:25)
== END 2021-09-30 02:38 | disposition home or self-care (01) ==
LOC: ER 23:57
DX: S60.131A Contusion of right middle finger with damage to nail, initial encounter (principal); S00.211A Abrasion of right eyelid and periocular area, initial encounter; J45.909 Unspecified asthma, uncomplicated; F12.90 Cannabis use, unspecified, uncomplicated; Z72.89 Other problems related to lifestyle; Z56.0 Unemployment, unspecified; Z88.0 Allergy status to penicillin; Z79.899 Other long term (current) drug therapy; V89.2XXA Person injured in unspecified motor-vehicle accident, traffic, initial encounter; Y93.89 Activity, other specified; Y92.89 Other specified places as the place of occurrence of the external cause; Y99.8 Other external cause status
CPT/HCPCS: 73130; 99284

== ENCOUNTER 2021-09-30 08:00 | Emergency (ER) | payer MEDICAID ==
[~2021-09-30] VITALS: Ht 167.6 cm; Wt 90.0 kg
[2021-09-30 08:23] LABS: BASOPHILS % (AUTO) 0.6 % (0-1); EOSINOPHILS # (AUTO) 0.1 X10'3 (0-0.9); EOSINOPHILS % (AUTO) 1.4 % (0-6); HEMATOCRIT 40.1 % (42.0-52.0); HEMOGLOBIN 13.6 g/dl (14.0-17.9); LYMPHOCYTES # (AUTO) 1.4 X10'3 (1.1-4.8); LYMPHOCYTES % (AUTO) 24.6 % (21-51); MEAN CORPUSCULAR HEMOGLOBIN 31.8 PG (27.0-31.0); MEAN CORPUSCULAR VOLUME 93.5 FL (78-98); MEAN PLATELET VOLUME 7.3 FL (7.4-10.4); MONOCYTES # (AUTO) 0.5 X10'3 (0-0.9); MONOCYTES % (AUTO) 9.2 % (2-12); NEUTROPHILS # (AUTO) 3.6 X10'3 (1.8-7.7); NEUTROPHILS % (AUTO) 64.2 % (42-75); PLATELET COUNT 229 X10'3 (140-440); RED BLOOD COUNT 4.28 X10'6 (4.70-6.10); RED CELL DISTRIBUTION WIDTH 13.1 % (11.5-14.5); WHITE BLOOD COUNT 5.6 X10'3 (4.5-11.0)
[2021-09-30 08:39] LABS: ALANINE AMINOTRANSFERASE 27 U/L (12-78); ALBUMIN 3.5 G/DL (3.4-5.0); ANION GAP 7 (8-16); ASPARTATE AMINO TRANSFERASE 21 U/L (10-37); BILIRUBIN,TOTAL 0.8 MG/DL (0.1-1.0); BLOOD UREA NITROGEN 20 MG/DL (7-18); BUN/CREATININE RATIO 22.5 (5.4-32.0); CHLORIDE 107 MMOL/L (99-107); CREATININE 0.89 MG/DL (0.60-1.10); GLUCOSE 107 MG/DL (70-104); POTASSIUM 3.4 MMOL/L (3.5-5.1); SODIUM 142 MMOL/L (135-145); TOTAL CARBON DIOXIDE 28.4 MMOL/L (24-32); eGFR > 90 ML/MIN
--- NOTE | 2021-09-30 08:39 | NUR ---
PT TO CT.
[2021-09-30 08:55] LABS: ALKALINE PHOSPHATASE 61 IU/L (20-180); ETHANOL < 0.010 GM/DL (0.0-0.010)
[2021-09-30 09:01] LABS: ACETAMINOPHEN < 2.0 UG/ML (10-30)
--- NOTE | 2021-09-30 09:05 | NUR ---
poison control called spoke to [facility]. Recommending: cardiac monitoring for 6-8 hours, monitor binding cementer french cord depression and for qrs widening from ekg,hyponatremia,hypotension, if qrs >120 admin bicarb.
[2021-09-30 16:40] LABS: URINE AMPHETAMINE SCREEN NEGATIVE (Neg); URINE BARBITUATE SCREEN NEGATIVE (Neg); URINE BENZODIAZEPINES SCREEN NEGATIVE (Neg); URINE CANNABINOID SCREEN POSITIVE (Neg); URINE COCAINE SCREEN NEGATIVE (Neg); URINE METHADONE SCREEN NEGATIVE (Neg); URINE OPIATE SCREEN NEGATIVE (Neg); URINE PHENCYCLIDINE SCREEN NEGATIVE (Neg)
--- NOTE | 2021-09-30 16:44 | NUR ---
CALL FROM [facility] AT POISON CONTROL, UPDATED ON VITALS, LOC, STATUS. RELEASED FROM POISON CONTROL OBSERVATION.
[2021-09-30 16:45] LABS: CLARITY,URINE SLIGHTLY CLOUDY (Clear); COLOR,URINE YELLOW (Yellow); GLUCOSE, URINE NEGATIVE (Neg); KETONES,URINE NEGATIVE (Neg); LEUKOCYTE ESTERASE ,URINE NEGATIVE (Neg); NITRITES, URINE NEGATIVE (Neg); OCCULT BLOOD,URINE NEGATIVE (Neg); PH,URINE 5.5 (4.8-8.0); PROTEIN,URINE NEGATIVE (Neg); UROBILINOGEN,URINE 0.2 E.U/dL (0.2-1.0)
[2021-09-30 16:50] LABS: UA COLLECTION TYPE VOIDED
[2021-09-30 16:51] LABS: WBC,URINE NONE SEEN /HPF (0-4)
[2021-09-30 16:52] LABS: BACTERIA,URINE NONE SEEN /HPF (Neg); CAL OXALATE CRYSTALS 3+ /HPF (NEGATIVE); MUCUS STRANDS MANY /LPF (Neg); RBC,URINE NONE SEEN /HPF (0-2); SQUAMOUS EPITHELIAL CELL,UR FEW /LPF (FEW)
--- NOTE | 2021-09-30 17:26 | NUR ---
Received patient from main ED to bed #23 at 1715. Pt was escorted over in a wheelchair. Pt presents fatigued, states "I just need to sleep." Pt denies having suicidal thoughts. Pt has a history of schizophrenia, but denies A/VH at this time. Pt has been seen in ED 5 times so far in September. Pt was discharged to [facility] on 09/25/21 by [facility]. Per records pt was only there for two days before he left. Pt changed into green scrubs without incident. Tox screen positive for THC. Addendum: 09/30/21 at 1739 by [facility]ED AMEND: Pt was discharged from [facility] on 09/28. Pt AWOL'd from [facility] on 09/27, attempted to return and push through staff around midnight. Police were called.
--- NOTE | 2021-09-30 17:37 | NUR ---
[facility] at bedside. Unable to safety plan with patient. Will be reevaluated tomorrow.
--- NOTE | 2021-09-30 18:47 | NUR ---
Received pt lying in bed with blanket over his head. PT denies any MH symptoms at this time, no depression or anxiety. Pt ate 100% of his meal. No needs at this time, pt lying in bed resting.
--- NOTE | 2021-09-30 20:51 | NUR ---
Pt appears to be sleeping, no distress noted.
--- NOTE | 2021-09-30 22:35 | NUR ---
Pt appears to be sleeping.
--- NOTE | 2021-10-01 00:33 | NUR ---
Pt appears to be sleeping.
--- NOTE | 2021-10-01 02:30 | NUR ---
Pt appears to be sleeping.
--- NOTE | 2021-10-01 05:20 | NUR ---
Pt appears to be sleeping, no distress noted.
--- NOTE | 2021-10-01 06:30 | NUR ---
PATIENT RECEIVED SLEEPING IN BED AT CHANGE OF SHIFT. HE WAS OBSERVED WALKING TO THE RESTROOM WITH A STEADY GAIT. PATIENT RETREATED BACK TO HIS ROOM AND WAS NOTED DRAWING THE CURTAINS SHUT. PATIENT INFORMED THAT CURTAINS MUST REMAIN OPEN FOR LINE OF SIGHT OBSERVATION. NO S/S OF DISTRESS NOTED. WILL CONTINUE TO MONITOR.
--- NOTE | 2021-10-01 07:49 | NUR ---
Patient speaking on the phone with his mom. Patient is slightly upset. Continue to monitor.
[2021-10-01] MEDS ORDERED: LORazepam 1 MG tablet PO ONE (08:05)
[2021-10-01] MEDS ORDERED: diphenhydrAMINE 25mg capsule PO ONE (08:05)
--- NOTE | 2021-10-01 08:10 | NUR ---
PATIENT NOTED SITTING IN HIS ROOM MAKING LOUD GRUNTING NOISES AND ENDORSING FEELINGS OF ANXIETY. HE WAS GIVEN A ONE-TIME DOSE OF ATIVAN 2MG PO AND BENADRYL 50MG PO PER ORDER BY DR. HERNANDEZ. WILL CONTINUE TO MONITOR.
--- NOTE | 2021-10-01 08:30 | NUR ---
PATIENT OBSERVED SITTING IN HIS ROOM EATING BREAKFAST AT THIS TIME. NO COMPLAINTS OR S/S OF DISTRESS NOTED.
--- NOTE | 2021-10-01 08:51 | NUR ---
PATIENT IS BEING EVALUATED BY [facility] AT THIS TIME
--- NOTE | 2021-10-01 09:30 | NUR ---
SENT PRIMARY NURSE ON A BREAK, THE PT. WAS RESTING COMFORTABLY NOT IN ANY DISTRESS
--- NOTE | 2021-10-01 10:00 | NUR ---
PATIENT'S MOTHER: GIRISH PHONE NUMBER: [phone] PATIENTS MOTHER VISITING AT BED SIDE AT THIS TIME. SHE IS REQUESTING TO BE UPDATED ONCE PATIENT IS ACCEPTED TO A MH FACILITY.
--- NOTE | 2021-10-01 10:20 | NUR ---
PATIENT OBSERVED SLEEPING IN BED AT THIS TIME ON HIS LEFT SIDE. RESPIRATIONS EVEN, UNLABORED. NO S/S OF DISTRESS.
--- NOTE | 2021-10-01 12:30 | NUR ---
PATIENT AWOKE TO EAT LUNCH. NOTED QUIETLY EATING IN HIS ROOM BEFORE GOING BACK TO SLEEP. NO COMPLAINTS OR CHANGES NOTED AT THIS TIME.
[2021-10-01] MEDS ORDERED: DIVA-52 PO (13:24)
[2021-10-01] MEDS ORDERED: OLAN10TA73 PO (13:25)
--- NOTE | 2021-10-01 13:30 | NUR ---
PATIENT WAS ACCEPTED TO [facility] AT 1315 BY [facility]. AWAITING TRANSPORTATION FROM THE [facility] FOR LATER TODAY.
[2021-10-01] MEDS ORDERED: olanzapine 10mg tablet PO SCH (14:07)
[2021-10-01] MEDS ORDERED: divalproex sodium 500mg tablet.DR PO SCH (14:07)
[2021-10-01] MEDS ORDERED: albuterol 2.5 MG/3 ML nebule NEB PRN (14:10)
--- NOTE | 2021-10-01 14:35 | NUR ---
PATIENT CONTINUES SLEEPING IN HIS ROOM WITH NO S/S OF DISTRESS. WILL CONTINUE TO MONITOR.
--- NOTE | 2021-10-01 16:35 | NUR ---
PATIENT OBSERVED AMBULATING TO THE RESTROOM AND BACK TO BED WITH A STEADY GAIT. HE IS NOTED SLEEPING ON HIS RIGHT SIDE AT THIS TIME. NO COMPLAINTS OR CHANGES NOTED. WILL CONTINUE TO MONITOR.
[2021-10-01 19:22] VITALS: BP 120/76
== END 2021-10-01 19:26 ==
LOC: ER 08:00
DX: T43.592A Poisoning by other antipsychotics and neuroleptics, intentional self-harm, initial encounter (principal); T14.91XA Suicide attempt, initial encounter; Z20.822 Contact with and (suspected) exposure to COVID-19; J45.909 Unspecified asthma, uncomplicated; F20.9 Schizophrenia, unspecified; F32.9 Major depressive disorder, single episode, unspecified; F12.90 Cannabis use, unspecified, uncomplicated; Z72.89 Other problems related to lifestyle; Z60.2 Problems related to living alone; Z59.00 Homelessness unspecified; Z88.0 Allergy status to penicillin; Z79.899 Other long term (current) drug therapy; Y92.89 Other specified places as the place of occurrence of the external cause
CPT/HCPCS: 36415; 70450; 71045; 72125; 80053; 80305; 80320; 80329; 81001; 84443; 85025; 87635; 93005; 99285; C9803; Q0163